=== PATIENT | female | born 2005 | race Two or more races ===

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

== ENCOUNTER 2024-03-19 12:23 | Outpatient (REF) | payer OTHER, SELFPAY ==
--- OUTSIDE RECORDS SUMMARY | 2024-03-19 13:28 | XMS_ITS | Encounter Summary ---
Author Organization [employer] Address [address] [place] [address] Care Team Providers Care Ticket Clerk Name Role Phone Unavailable Primary Care Provider Unavailabl e Encounter Details Date Type Department Care Team ([facility] st Contact Info) Description 03/19/2024 10:45 AM EST Office Visit [facility] [address] [place] [address] Monica Pandey DO [address] [place] [address] Routine history and physical examination of adult (Primary Dx); Encounter for immunization Social History Tobacco Use Types Packs/Day Years Used Date Smoking Tobacco: Never Smokeless Tobacco: Never Tobacco Cessation:Counseling Given: Not Answered Alcohol Use Standard Drinks/Week Comments Never 0 (1 standard drink = 0.6 oz pur e alcohol) Depression Answer Date Recorded Patient Health Questionnaire-9 Score 14 03/19/2024 Patient Health Questionnaire-9 Score 14 03/19/2024 Last PHQ-9: Questionnaire Data Not on file 0 03/19/2024 Housing Stability Answer Date Recorded What is your housing situation today? I have neelam hollis 03/07/[address] you li ve. Do you have problems with any of the following? None of the above 03/07/2024 Food Insecurity Answer Date Recorded Within the past 12 months, y ou worried that your food would run out before you got money to buy more: Sometimes True 2024 Within the past 12 months,th e food you bought just didn't last and you didn't have enough money to get more: Sometimes True 03/07/2024 Transportation Answer Date Recorded In the past 12 months, has l ack of transportation kept you from medical appts, meetings, work or from getting things needed for daily living? No 03/07/2024 Utilities Answer Date Recorded In the past 12 months, has t he electric, gas, oil or water company threatened to shut off services in your home? No 03/07/2024 Depression Answer Date Recorded Patient Health Questionnaire-2 Score 4 03/19/2024 Internet Access Answer Date Recorded Internet Access Q1 Yes 03/07/2024 Internet Access Q2 Not on file 03/07/2024 Comments No Sex and Gender Information Value Date Recorded Sex Assigned at Female 12/07/2021 10:34 AM EDT Legal Sex Female 10:34 AM EDT Gender Identity Female 05/02/2023 1:57 PM EDT Sexual Orientation Straight 05/02/2023 1: 57 PM EDT documented as of this encounter Last Filed Vital Signs Vital Sign Reading Time Taken Comments Blood Pressure 100/60 03/19/2024 10:49 AM EST Pulse 65 03/19/2024 10:49 AM EST Temperature 36.2 ??C (97.1 ??F) 03/19/2024 10:[address] Respiratory Rate 21 03/19/2024 10:49 AM EST Oxygen Saturation 99% 03/19/2024 10:49 AM EST Inhaled Oxygen Concentration - - Weight 45.8 kg (101 lb) 03/19/2024 10:49 AM EST Height 157.5 cm (5' 2 ) 03/19/2024 10:49 AM EST Body Mass Index 18.47 03/19/2024 10:49 AM EST documented in this encounter Plan of Treatment Scheduled Orders Name Type Priority Associated Diagnoses Orde r Schedule T4, Free Lab Routine Encounter for immunization Routine history and physical examination of adult Expected: 03/19/2024 (Approximate), Expires: 03/19/2025 Lipid Panel, Standard Lab Routine Encounter for immunization Routine history and physical examination of adult Expected: 03/19/2024 (Approximate), Expires: 03/19/2025 TSH Lab Routine Encounter for immunization Routine history and physical examination of adult Expected: 03/19/2024 (Approximate), Expires: 03/19/2025 Vitamin D, 25-Hydroxy, Total, Immunoassay Lab Routine Encounter for immunization Routine history and physical examination of adult Expected: 03/19/2024 (Approximate), Expires: 03/19/2025 Hepatic Function Panel Lab Routine Encounter for immunization Routine history and physical examination of adult Expected: 03/19/2024 (Approximate), Expires: 03/19/2025 Hemoglobin A1c Lab Routine Encounter for immunization Routine history and physical examination of adult Expected: 03/19/2024 (Approximate), Expires: 03/19/2025 CBC Lab Routine Encounter for immunization Routine history and physical examination of adult Expected: 03/19/2024, Expires: 03/19/2025 Basic Metabolic Panel Lab Routine Encounter for immunization Routine history and physical examination of adult Expected: 03/19/2024 (Approximate), Expires: 03/19/2025 Hepatitis B surface antigen, EIA Lab Routine Encounter for immunization Routine history and physical examination of adult Expected: 03/19/2024 (Approximate), Expires: 03/19/2025 Chlamydia/N. Gonorrhoeae RNA, TMA, Urogenitial Microbiology Routine Encounter for immunization Routine history and physical examination of adult Ordered: 03/19/2024 HIV-1/2 Antigen and Antibodies, Fourth Generation, with Reflexes Lab Routine Encounter for immunization Routine history and physical examination of adult Expected: 03/19/2024 (Approximate), Expires: 03/19/2025 Hepatitis C Antibody with Reflex to HCV, RNA, Quantitative, Real-Time PCR Lab Routine Encounter for immunization Routine history and physical examination of adult Expected: 03/19/2024, Expires: 03/19/2025 RPR (Monitor) with Reflex to??Titer Lab Routine Encounter for immunization Routine history and physical examination of adult Expected: 03/19/2024, Expires: 03/19/2025 Hepatitis B Surface Antibody, Qualitative Lab Routine Encounter for immunization Routine history and physical examination of adult Expected: 03/19/2024 (Approximate), Expires: 03/19/2025 Hepatitis A Antibody, Total Lab Routine Encounter for immunization Routine history and physical examination of adult Expected: 03/19/2024 (Approximate), Expires: 03/19/2025 Hepatitis B Core Antibody, Total Lab Routine Encounter for immunization Routine history and physical examination of adult Expected: 03/19/2024 (Approximate), Expires: 03/19/2025 documented as of this encounter Visit Diagnoses Diagnosis Routine history and physical examination of adult- Primary Encounter for immunization documented in this encounter Additional Health Concerns Assessment Noted Time PHQ-9 Depression Total Score: 14 025 10:56 AM EST documented as of this encounter
--- OUTSIDE RECORDS SUMMARY | 2024-03-19 13:28 | XMS_ITS | Encounter Summary ---
Author Organization [employer] Address [address] [place] [address] Care Team Providers Care Exhaust And Muffler Fitter Name Role Phone Unavailable Primary Care Provider Unavailabl e Reason for Visit * Reason Comments Pre-visit Planning SDOH Screening posit debbie and Tobacco screening negative Encounter Details Date Type Department Care Team ([facility] st Contact Info) Description 03/07/2024 Patient Outreach [facility] [address] [place] [address] Monica Pandey DO [address] [place] [address] Pre-visit Planning (SDOH Screening positive and Tobacco screening negative) Social History Tobacco Use Types Packs/Day Years Used Date Smoking Tobacco: Never Assessed Housing Stability Answer Date Recorded What is your housing situation today? I have neelamophelia hollis 03/07/[address] you [...] off services in your home? No 03/07/2024 Internet Access Answer Date Recorded Internet Access Q1 Yes 03/07/2024 Internet Access Q2 Not on file 03/07/2024 Comments Unknown Sex and Gender Information Value Date Recorded Sex Assigned at Female 12/07/2021 10:34 AM EDT Legal Sex Female 10:34 AM EDT Gender Identity Female 05/02/2023 1:57 PM EDT Sexual Orientation Straight 05/02/2023 1: 57 PM EDT documented as of this encounter Progress Notes * Yohana Huerta - 03/07/2024 2:36 PM EST CC Yohana Ochoa placed successful outbound call to patient for pre-visit planning. Patient name and confirmed. Patient confirms appt date and time, and has transportation arrangements. Biggest concern for appointment at this time is no concerns but wants PCP to do a whole check up. Patient advisedto bring to appointment a photo id and insurance card. Appropriate screenings completed in anticipation of appointment. SDOH positive. Patient looking for assistance with Food insecurities:Sometimes.Referral will be placed. documented in this encounter Plan of Treatment Not on file documented as of this encounter Visit Diagnoses Not on filedocumented in this encounter
--- OUTSIDE RECORDS SUMMARY | 2024-03-19 13:28 | XMS_ITS | Clinical Summary ---
Author Organization [employer] Address [address] [facility] [address] [place] [address] Care Team Providers Care Office Clin Asst Name Role Phone Unavailable Primary Care Provider Unavailabl e Allergies No known active allergies Encounters Date Type Department Care Team Description 03/19/2024 10:45 AM EST Office Visit [address] [id number] Monica Pandey DO Routine history and physical examination of adult (Primary Dx); Encounter for immunization 03/19/2024 Travel 03/07/2024 Patient Outreach [facility] [address] [place] [id number] Monica Pandey DO Care Coordination (CHW outreach for SDOH PT-1 and food needs-referral completed /) 03/07/2024 Patient Outreach [address] [address] Monica Pandey DO Pre-visit Planning (SDOH Screening positive and Tobacco screening negative) 02/13/[address] [phone] Marquez Rogers MD New patient appt. from Last 3 Months Immunizations Name Administration Dates Next Due Influenza, seasonal, injectable, preservative fr ee 03/19/2024 Tdap 03/19/2024 Family History Medical History Relation Name Comments Bipolar disorder Father Schizophrenia Father Breast cancer Maternal Grandmother Alcohol abuse Mother Anxiety disorder Mother Depression Mother Heart disease Mother Hypertension Mother Autism Nephew Bipolar disorder Sister 1 Schizophrenia Sister 1 Depression Sister 2 Diabetes Sister 2 Relation Name Status Comments Father Maternal Grandmother Mother Nephew Alive Sister 1 Sister 2 Alive Social History Tobacco Use Types Packs/Day Years [...] Orientation Straight 05/02/2023 1: 57 PM EDT Last Filed Vital Signs Vital Sign Reading [...] Mass Index 18.47 03/19/2024 10:49 AM EST Plan of Treatment Health Maintenance Due Date Last Done Comments Chlamydia and Gonorrhea Screening 2003 HIV Screening 2003 Family Planning (PISQ) 08/13/2018 HPV Vaccines (1 - 3-dose series) 08/13/2018 Hepatitis C Screening 08/13/2021 Hepatitis B Vaccines (1 of 3 - 19+ 3-dose series) 08/13/2022 COVID-19 Vaccine ( - 2023-2 5 season) 2023 Depression Monitoring (PHQ-9) 09/16/2024, 03/19/2024 SDOH Screening 03/07/2025 03/07/2024 Alcohol/Substance Use Screening 03/19/2025 03/19/2024 Depression Screening 03/19/2025 03/19/2024, 03/19/2024 Tobacco Screening 03/19/2025 03/19/2024 DTaP/Tdap/Td Vaccines (2 - T d or Tdap) 03/19/2034 03/19/2024 Zoster Vaccines (1 of 2) 08/13/2053 RSV Patients and Patients Aged 60 years or older (1 - 1-dose 75+ series) 08/13/2078 Influenza Vaccine Completed 03/19/2024 HIB Vaccines Aged Out No longer eligi ble based on patient's age to complete this topic Hepatitis A Vaccines Aged Out No long er eligible based on patient's age to complete this topic IPV Vaccines Aged Out No longer eligi ble based on patient's age to complete this topic Meningococcal Vaccine Aged Out No stefan ruma eligible based on patient's age to complete this topic Pneumococcal Vaccine: Pediatrics (0 to 5 Years) and At-Risk Patients (6 to 49) Years) Aged Out No longer eligible b ased on patient's age to complete this topic RSV under 20 months Aged Out No longe r eligible based on patient's age to complete this topic Rotavirus Vaccines Aged Out No longer eligible based on patient's age to complete this topic Insurance [facility] [address] [place] [address]
--- OUTSIDE RECORDS SUMMARY | 2024-03-19 13:28 | XMS_ITS | Encounter Summary ---
Author Organization [employer] Address [address] [facility] [address] [place] [address] Care Team Providers Care Metal Inspector Name Role Phone Unavailable Primary Care Provider Unavailabl e Encounter Details Date Type Department Care Team (Latest Contact Info) Description 03/19/2024 Travel Social History Tobacco Use Types Packs/Day Years Used Date Smoking Tobacco: Never Smokeless Tobacco: Never Alcohol Use Standard Drinks/Week Comments Never 0 [...] PM EDT documented as of this encounter Plan of Treatment Not on file documented as of this encounter Visit Diagnoses Not on filedocumented in this encounter Additional Health Concerns Assessment Noted Time PHQ-9 Depression Total Score: 14 025 10:56 AM EST documented as of this encounter
--- OUTSIDE RECORDS SUMMARY | 2024-03-19 13:28 | XMS_ITS | Encounter Summary ---
Author Organization [employer] Address [address] [address] [place] [address] Care Team Providers Care Photography Intern Name Role Phone Unavailable Primary Care Provider Unavailabl e Reason for Visit * Reason Comments Care Coordination CHW outreach for SDO H PT-1 and food needs-referral completed Encounter Details Date Type Department Care Team (Latest Contact Info) Description 03/07/2024 Patient Outreach [facility] [address] [place] [address] Monica Pandey DO [address] [place] [address] Care Coordination (CHW outreach for SDOH PT-1 and food needs-referral completed /) Social History Tobacco Use Types Packs/Day Years [...] as of this encounter Progress Notes * Alex Noriega - 03/07/2024 3:21 PM EST CHW Alex Noriega, placed outbound call to patient for assistance with SDOH as a referral was received by the provider. Patient's name and were confirmed. Patient screened positive for the following SDOH pet's control & food insecurities. CHW referral patient to the local list of pantriesin the area for help and advice family to connect with [employer] and pet's control offices [place]. Patient verbalizes understanding, and able to agree with plan to follow up. Patient educated on extended clinic hours on Mondays through Wednesdays, and Walk-In Urgent Care Located in [facility] of [facility]. Patient provided with after-hours line for [facility], , which offer night time triage service and option to transfer to [facility]oh[facility] surgeon provider if needed. documented in this encounter Plan of Treatment Not on file documented as of this encounter Visit Diagnoses Not on filedocumented in this encounter
[2024-03-19 13:29] LABS: Hematocrit 43.6 % (37.0-47.0); Hemoglobin 14.4 g/dl (12.0-16.0); Mean Corpuscular Hemoglobin 29.2 pg (27.0-33.0); Mean Corpuscular Volume 88.4 fL (80.0-98.0); Mean Platelet Volume 10.4 fL (9.4-12.3); Platelet Count 314 X10*3/uL (160-400); Red Blood Count 4.93 X10*6/uL (4.20-5.50); Red Cell Distribution Width 11.9 % (11.0-16.0); White Blood Count 8.2 X10*3/uL (4.8-10.8)
[2024-03-19 13:39] LABS: Estimated Average Glucose 94 mg/dL; Hemoglobin A1C 112.6949 umol/L; Hemoglobin A1c % 4.9 % (<6.0)
[2024-03-19 14:00] LABS: Alanine Aminotransferase 17 U/L (0-31); Albumin Level 5.1 g/dL (3.5-5.0); Alkaline Phosphatase 70 U/L (39-117); Anion Gap 10 (12-20); Aspartate Amino Transferase 24 U/L (5-31); Bilirubin Direct 0.1 mg/dL (0.0-0.5); Bilirubin Total 0.3 mg/dL (0.0-1.0); Blood Urea Nitrogen 13 mg/dL (9-16); Calcium 9.9 mg/dL (8.4-10.2); Carbon Dioxide 26 mmol/L (22-29); Chloride 107 mmol/L (96-108); Cholesterol 172 mg/dL (<200); Estimated Glomerular Filt Rate > 60; Free T4 (Free Thyroxine) 0.97 ng/dL (0.71-1.85); Glucose Random 80 mg/dL (60-115); HDL Cholesterol 58 mg/dL (>40); LDL Cholesterol Calculated 95 mg/dL (<100); Potassium 3.6 mmol/L (3.3-5.1); Sodium 139 mmol/L (135-145); Thyroid Stimulating Hormone 1.95 uIU/mL (0.32-4.0); Triglycerides 96 mg/dL (<150); Vitamin D 25-OH Total 27.3 ng/mL (>30)
[2024-03-19 14:04] LABS: HBc Num1 0.09 S/CO (0.00-0.79); HIV AB/AG Nonreactive (Nonreactive); HIV Num 1 0.05 S/CO (0.00-0.99); Hepatitis B Core Antibody Nonreactive (Nonreactive); Hepatitis B Surface Antigen Negative (Negative); ~HepC Num1 0.09 S/CO (0.00-0.79); ~Hepatitis B Surface Antibody NONREACTIVE (Nonreactive); ~Hepatitis C Antibody Nonreactive (Nonreactive)
[2024-03-19 14:06] LABS: Hepatitis A Antibody IgG REACTIVE (Nonreactive)
[2024-03-20 05:33] LABS: CT PCR NOT DETECTED (Not Detect.); NG PCR NOT DETECTED (Not Detect.)
[2024-03-21 12:28] LABS: RPR Rapid Plasma Reagin NON-REACTIVE (NON-REACTIVE)
== END 2024-03-19 12:24 | disposition home or self-care (01) ==
LOC: HO.HHCL 12:23
PROVIDERS: Visit Provider Family Medicine
DX: Z00.00 Encounter for general adult medical examination without abnormal findings (principal); Z01.84 Encounter for antibody response examination
CPT/HCPCS: 80048; 80061; 80076; 82306; 83036; 84439; 84443; 85027; 86592; 86704; 86706; 86708; 86803; 87340; 87389; 87491; 87591

== ENCOUNTER 2024-03-23 14:25 | Emergency (ER) | payer OTHER, SELFPAY ==
[2024-03-23 14:28] VITALS: BP 112/86; PULSE 91; O2SAT 97
[2024-03-23 15:06] VITALS: BP 121/72; PULSE 92; RESP 16; TEMP 37.9; O2SAT 99; BMI 19.1
--- NOTE | 2024-03-23 15:06 | ED_ITS ---
HPI - General Adult General Chief complaint: General Medical Stated complaint: FLU LIKE SYMPTOMS, FEVER PER EMS Related Data Allergies Allergy/AdvReac Type Severity Reaction Status Date / Time No Known Allergies Allergy Verified 03/23/24 15:07 [facility] Past Medical History Medical History Anxiety and depression Eating, excessive indulgence Engages in vaping Marijuana smoker, episodic Stress due to illness of family member Vision disturbance Family History Family History Mother Heart attack History of open heart surgery Ex-cigarette smoker of unknown amount Limited mobility Family/Other No problems noted. Social History Social History Household Members Other:: mom, step dad, pt's girlfriend; mom homebound post cardiac surgery 01/28 Housing: Apartment Advance Directives: No Advance Directives Information Provided: No Physical Exam ED Vital Signs: BMI result Body Mass Index 19.1 Course Course Course Narrative: RME, this is a rapid medical exam performed by Mal Muñiz please refer to primary provider for complete H&P- 18 year old female presents for evaluation of flu-like symptoms for the last 2 days. She reports that she got her flu shot last week. Her mother is home with similar symptoms. Discharge Plan Discharge Clinical Impression: Fever Patient Disposition: Left W/O Completing Treatment Discharge Date/Time: 03/23/24 19:48
--- NOTE | 2024-03-23 19:47 | PC.NURSE ---
no answer from [id number]
--- OUTSIDE RECORDS SUMMARY | 2024-03-23 19:48 | XMS_ITS | Encounter Summary ---
Author Organization [employer] Address [address] [place] [address] Care Team Providers Care Certified Nutritionist Name Role Phone Unavailable Primary Care Provider Unavailabl e Encounter Details Date Type Department Care Team ([facility] st Contact Info) Description 03/19/2024 10:45 AM EST Office Visit [facility] [address] [place] [address] Monica Pandey DO [address] [place] [address] Routine history and physical examination of adult [...] on file documented as of this encounter Procedures Procedure Name Priority Date/Time Associated Diagnosis Comments VITAMIN D,25-OH,TOTAL,IA Routine 03/19/2024 12:26 PM EST Encounter for immunization Routine history and physical examination of adult HEPATITIS C AB W/REFL TO HCV RNA, QN, PCR Routine 03/19/2024 12:26 PM EST Encounter for immunization Routine history and physical examination of adult HEPATITIS A ANTIBODY, TOTAL Routine 03/19/2024 12:26 PM EST Encounter for immunization Routine history and physical examination of adult CHLAMYDIA/N. GONORRHOEAE RNA, TMA, UROGENITAL Routine 03/19/2024 12:26 PM EST Encounter for immunization Routine history and physical examination of adult HEPATITIS B SURFACE ANTIGEN, EIA Routine 03/19/2024 12:26 PM EST Encounter for immunization Routine history and physical examination of adult HEPATITIS B CORE AB TOTAL Routine 03/19/2024 12:26 PM EST Encounter for immunization Routine history and physical examination of adult RPR (MONITOR) W/REFL TITER Routine 03/19/2024 12:26 PM EST Encounter for immunization Routine history and physical examination of adult HIV 1/2 ANTIGEN/ANTIBODY, FOURTH GENERATION W/RFL Routine 03/19/2024 12:26 PM EST Encounter for immunization Routine history and physical examination of adult HEPATITIS B SURFACE ANTIBODY, QUALITATIVE Routine 03/19/2024 12:26 PM EST Encounter for immunization Routine history and physical examination of adult CBC Routine 03/19/2024 12:26 PM EST Encounter for immunization Routine history and physical examination of adult TSH Routine 03/19/2024 12:26 PM EST Encounter for immunization Routine history and physical examination of adult T4, FREE Routine 03/19/2024 12:26 PM EST Encounter for immunization Routine history and physical examination of adult HEMOGLOBIN A1C Routine 03/19/2024 12:26 PM EST Encounter for immunization Routine history and physical examination of adult HEPATIC FUNCTION PANEL Routine 03/19/2024 12:26 PM EST Encounter for immunization Routine history and physical examination of adult LIPID PANEL, STANDARD Routine 03/19/2024 12:26 PM EST Encounter for immunization Routine history and physical examination of adult BASIC METABOLIC PANEL Routine 03/19/2024 12:26 PM EST Encounter for immunization Routine history and physical examination of adult documented in this encounter Results * Hepatitis B Core Antibody, Total (03/19/2024 12:26 PM EST) Hepatitis B Core Antibody Nonreactive Nonreactive [facility] Blood Venous blood specimen / Unknown 03/19/2024 12:26 PM EST 03/19/2024 1:14 PM EST Monica Pandey DO LAB BLOOD ORDERABLES Final R esult Performing Organization Address City/Va Hospital/ZIP Co de Phone Number [facility] [address] [place] [address] [phone] * Hepatitis A Antibody, Total (03/19/2024 12:26 PM EST) Pathologist [facility] Hepatitis A Antibody IgG REACTIVE Nonreactive [facility] Comment:The presence of IgG anti-HAV implies past HAV infection(recent or distant) or vaccination against HAV. Blood Venous blood specimen / Unknown 03/19/2024 12:26 PM EST 03/19/2024 1:14 PM EST Monica Pandey DO LAB BLOOD ORDERABLES Final R esult Performing Organization Address City/Va Hospital/[facility] Co de Phone Number [facility] [address] [place] [address] [phone] * Hepatitis B Surface Antibody, Qualitative (03/19/2024 12:26 PM EST) ~Hepatitis B Surface Antibody NONREACTIVE Nonreactive [facility] Comment:Nonreactive: < 8.00 mIU/mL Blood Venous blood specimen / Unknown 03/19/2024 12:26 PM EST 03/19/2024 1:14 PM EST Monica Pandey DO LAB BLOOD ORDERABLES Final R esult Performing Organization Address City/Va Hospital/ZIP Co de Phone Number [facility] [address] [place] [address] [phone] * RPR (Monitor) with Reflex to??Titer (03/19/2024 12:26 PM EST) RPR (Monitor) w/Refl Titer NON-REACTI VE NON-REACT RODRIGUE [facility] Comment:THIS TEST WAS PERFOR MED AT:[email or web address] [place] [id number] TAPIA MD Rapid Plasma Reagin Ab Titer TNP [facility] Blood Venous blood specimen / Unknown 03/19/2024 12:26 PM EST 03/19/2024 1:14 PM EST Monica Pandey DO LAB BLOOD ORDERABLES Final R esult Performing Organization Address [facility]/Va Hospital/ZIP Co de Phone Number [facility] [address] [place] [phone] * Hepatitis C Antibody with Reflex to HCV, RNA, Quantitative, Real-Time PCR (03/19/2024 12:26 PM EST) Hepatitis C Antibody Nonreactive Nonreactive [facility] Comment:Antibodies to HCV no t detected; does not exclude early acuteHCV infection. Blood Venous blood specimen / Unknown 03/19/2024 12:26 PM EST 03/19/2024 1:14 PM EST Monica Pandey DO LAB BLOOD ORDERABLES Final R esult Performing Organization Address [facility]/Va Hospital/ZIP Co de Phone Number [facility] [address] [place] [phone] [phone] * HIV-1/2 Antigen and Antibodies, Fourth Generation, with Reflexes (03/19/2024 12:26 PM EST) HIV AB/AG Nonreactive Nonreactive [facility] Comment:HIV-1 p24 Ag and/or HIV-1/HIV-2 Ab not detected.A test result that is nonreactive does not exclude thepossibility of exposure to or infection with HIV-1 and/orHIV-2. Nonreactive results in this assay for individualswith prior exposure to HIV-1 and/or HIV-2 may be due toantigen and antibody levels that are below the limit ofdetection of this assay.The [employer] HIV Ag/Ab Combo assay result andsupplemental assay results should be interpreted inconjunction with the patient's clinical presentation,history and other laboratory results. If the results areinconsistent with clinical evidence, additional testing issuggested to confirm the result. Blood Venous blood specimen / Unknown 03/19/2024 12:26 PM EST 03/19/2024 1:14 PM EST us Monica Pandey DO LAB BLOOD ORDERABLES Final R esult [facility] [address] [place] [phone] * Chlamydia/N. Gonorrhoeae RNA, TMA, Urogenitial (03/19/2024 12:26 PM EST) CT PCR NOT DETECTED Not Detect. [facility] Comment:A not detected test result does not exclude the possibilityof infection because test results can be affected byimproper specimen collection, concurrent antibiotic therapy,or the number of organisms in the specimen which may bebelow the sensitivity of the test. As with many diagnostictests, results from the Xpert CT/NG assay should beinterpreted in conjunction with other laboratory andclinical data available to the clinician.Xpert CT/NG performance has not been evaluated in patientsless than 14 years of age. The assay should not be used forthe evaluationof suspected sexual abuse or for other medico-legalindications. Additional testing is recommended in anycircumstance when false positive or false negative resultscould lead to adverse medical, social or psychologicalconsequences. NG PCR NOT DETECTED Not Detect. [facility] Comment:A not detected test result does not exclude the possibilityof infection because test results can be affected byimproper specimen collection, concurrent antibiotic therapy,or the number of organisms in the specimen which may bebelow the sensitivity of the test. As with many diagnostictests, results from the Xpert CT/NG assay should beinterpreted in conjunction with other laboratory andclinical data available to the clinician.Xpert CT/NG performance has not been evaluated in patientsless than 14 years of age. The assay should not be used forthe evaluationof suspected sexual abuse or for other medico-legalindications. Additional testing is recommended in anycircumstance when false positive or false negative resultscould lead to adverse medical, social or psychologicalconsequences. Urine Urethral structure / Unknown 03/19/2024 12:26 PM EST 03/19/2024 1:11 PM EST Narrative [facility] - 03/20/2024 5:33 AM EST Urine Monica Pandey DO LAB MICROBIOLOGY - GENERAL O RDERABLES Final Result Performing Organization Address [facility]/Va Hospital/ZIP Co de Phone Number [facility] [address] [place] [address] [phone] * Hepatitis B surface antigen, EIA (03/19/2024 12:26 PM EST) Hepatitis B Surface Ag Negative Negative [facility] Blood Venous blood specimen / Unknown 03/19/2024 12:26 PM EST 03/19/2024 1:14 PM EST Monica Pandey DO LAB BLOOD ORDERABLES Final R esult Performing Organization Address [facility]/Va Hospital/ZIP Co de Phone Number [facility] [address] [place] [address] [phone] * (ABNORMAL) Basic Metabolic Panel (03/19/2024 12:26 PM EST) Sodium 139 135 - 145 mmol/L [facility] Potassium 3.6 3.3 - 5.1 mmol/L [facility] Chloride 107 96 - 108 mmol/L [facility] Carbon Dioxide 26 22 - 29 mmol/L [facility] Anion Gap 10(L) 12 - 20 [facility] Urea Nitrogen (BUN) 13 9 - 16 mg/dL [facility] Creatinine, Serum 0.70 0.5 - 1.4 mg/dL [facility] Estimated Glomerular Filt Rate >60 [facility] Comment:Chronic Kidney Disea se: Estimated GFR < 60 mL/min/[id number] Kidney Disease: Estimated GFR < 15 mL/min/1.73m2 Glucose 80 60 - 115 mg/dL [facility] Calcium 9.9 8.4 - 10.2 mg/dL [facility] Blood Venous blood specimen / Unknown 03/19/2024 12:26 PM EST 03/19/2024 1:14 PM EST us Monica Pandey DO LAB BLOOD ORDERABLES Final R esult [facility] [address] [place] [address] [phone] * CBC (03/19/2024 12:26 PM EST) White Blood Count 8.2 4.8 - 10.8 X10*3/uL [facility] Red Blood Count 4.93 4.20 - 5.50 X10*6/uL [facility] Hemoglobin 14.4 12.0 - 16.0 g/dl [facility] Hematocrit 43.6 37.0 - 47.0 % [facility] Mean Corpuscular Volume 88.4 80.0 - 98.0 fL [facility] Mean Corpuscular Hemoglobin 29.2 27.0 - 33.0 pg [facility] Mean Corpuscular HGB Conc 33.0 31.0 - 35.0 g/dl [facility] Red Cell Distribution Width 11.9 11.0 - 16.0 % [facility] Platelet Count 314 160 - 400 X10*3/uL [facility] Mean Platelet Volume 10.4 9.4 - 12.3 fL [facility] NRBC Pct Auto 0.0 0.0 - 0.2 /100WBC [facility] NRBC Abs Auto 0.000 0.0 - 0.012 X10*3/uL [facility] Blood Venous blood specimen / Unknown 03/19/2024 12:26 PM EST 03/19/2024 1:14 PM EST Monica Dannie LAB BLOOD ORDERABLES Final R esult Performing Organization Address City/Va Hospital/ZIP Co de Phone Number [facility] [address] [place] [address] [phone] * Hemoglobin A1c (03/19/2024 12:26 PM EST) Hemoglobin A1c 4.9 <6.0 % [facility] Comment:Hemoglobin A1C Refer ence Range Adults: 4.8 - 6.0 % Non diabetic: < 6.0 % Goal: < 7.0 %Additional Action Suggested: > 8.0 %Note: Hemoglobin A1c results are invalid for patients with abnormal amounts of HbF. Blood transfusions may impact the HbA1c concentration in the patient sample. Estimated Average Glucose 94 mg/dL [facility] Comment:eAG = Estimated ave rage glucose which is %A1C expressed asaverage glucose, using the formula of the [id number]-[id number] Glucose study (ADAG), Diabetes Care, Vol.31,#8,Sep. 2007 Blood Venous blood specimen / Unknown 03/19/2024 12:26 PM EST 03/19/2024 1:14 PM EST Monica Pandey DO LAB BLOOD ORDERABLES Final R esult Performing Organization Address City/Va Hospital/ZIP Co de Phone Number [facility] [address] [place] [address] [phone] * (ABNORMAL) Hepatic Function Panel (03/19/2024 12:26 PM EST) Bilirubin, Total 0.3 0.0 - 1.0 mg/dL [facility] Bilirubin, Direct 0.1 0.0 - 0.5 mg/dL [facility] Aspartate Amino Transferase 24 5 - 31 U/L [facility] Alanine Aminotransferase 17 0 - 31 U/L [facility] Total Protein 9.0(H) 6.5 - 8.0 g/dL [facility] Albumin Level 5.1(H) 3.5 - 5.0 g/dL [facility] Alkaline Phosphatase 70 39 - 117 U/L [facility] Blood Venous blood specimen / Unknown 03/19/2024 12:26 PM EST 03/19/2024 1:14 PM EST [facility] BLOOD ORDERABLES Final R esult Performing Organization Address [facility] Hospital/[facility] Co de Phone Number [facility] [address] [place] [address] [phone] * (ABNORMAL) Vitamin D, 25-Hydroxy, Total, Immunoassay (03/19/2024 12:26 PM EST) Vitamin D 25-OH Total 27.3(L) >30 ng/mL [facility] Comment:Health Based Referen ce Values*< 20 ng/mL [id number] ng/mL Insufficient> 30 ng/mL Sufficient*Tan MARIE. N Engl J Med. 2007;357:266-280Care must be taken in interpreting Vitamin D results fromdifferent laboratories and methodologies. Published datademonstrated that results from patients undergoinghemodialysis may show a negative bias when tested withvarious automated 25-OH vitamin D assays when compared toLC-MS/MS.When testing samples from patients whose predominant form ofVitamin D is Vitamin D2, such as patients receiving VitaminD2 supplementation, results that are subtherapeutic shouldbe confirmed with another method such as LC-MS/MS. Blood Venous blood specimen / Unknown 03/19/2024 12:26 PM EST 03/19/2024 1:14 PM EST [facility] LAB BLOOD ORDERABLES Final R esult Performing Organization Address City/[facility] Hospital/[facility] Co de Phone Number [facility] [address] [place] [address] [phone] * TSH (03/19/2024 12:26 PM EST) Thyroid Stimulating Hormone 1.95 0.32 - 4.0 uIU/mL [facility] Comment:TSH 3rd Generation ( [facility]) Blood Venous blood specimen / Unknown 03/19/2024 12:26 PM EST 03/19/2024 1:14 PM EST us Monica Pandey DO LAB BLOOD ORDERABLES Final R esult [facility] [address] [place] [address] [phone] * Lipid Panel, Standard (03/19/2024 12:26 PM EST) Triglycerides 96 <150 mg/dL [facility] Comment:Desirable Triglyceri de: less than 150 mg/dLBorderline High Triglyceride 150-199 mg/dLHigh Triglyceride: 200-499 mg/dLVery High Triglyceride: greater than or equal to 5OO mg/dL Cholesterol 172 <200 mg/dL [facility] Comment:Desirable Cholestero l: less than 200 mg/dLBorderline High Cholesterol: 200-239 mg/dLHigh Cholesterol: greater than 239 mg/dL LDL Cholesterol Calculated 95 <100 mg/dL [facility] Comment:Desirable LDL: less than 100 mg/dLNear Optimal/Above Optimal LDL: 110- 129 mg/dLBorderline High LDL: 130-159 mg/dLHigh LDL: 160-189 mg/dLVery High LDL: greater than or equal to 190 mg/dL HDL Cholesterol 58 >40 mg/dL [facility] Comment:Desirable HDL: great er than 40 mg/dL Note: This HDL assay may give artificially low results in patients with liver disease. Blood Venous blood specimen / Unknown 03/19/2024 12:26 PM EST 03/19/2024 1:14 PM EST us Monica Pandey DO LAB BLOOD ORDERABLES Final R esult Performing Organization Address City/Va Hospital/ZIP Co de Phone Number [facility] [address] [place] [phone] [phone] * T4, Free (03/19/2024 12:26 PM EST) Free T4 (Free Thyroxine) 0.97 0.71 - 1.85 ng/dL [facility] Blood Venous blood specimen / Unknown 03/19/2024 12:26 PM EST 03/19/2024 1:14 PM EST us Monica Pandey DO LAB BLOOD ORDERABLES Final R [facility] Performing Organization Address [facility] Co de Phone Number [facility] [address] [place] [address] [phone] documented in this encounter Visit Diagnoses Diagnosis Routine history and physical examination of adult- Primary Encounter for immunization documented in this encounter Additional Health Concerns Assessment Noted Time PHQ-9 Depression Total Score: 14 025 10:56 AM EST documented as of this encounter
--- OUTSIDE RECORDS SUMMARY | 2024-03-23 19:48 | XMS_ITS | Encounter Summary ---
Author Organization [employer] Address [address] [place] [address] Care Team Providers Care Straight Knife Machine Cutter Name Role Phone Unavailable Primary Care Provider Unavailabl e Reason for Visit * Reason Onset Date Comments Results 03/22/2024 Encounter Details Date Type Department Care Team (Late st Contact Info) Description 03/22/2024 Refill [facility] [address] [place] [address] Monica Pandey DO [address] [place] [address] Social History Tobacco Use Types Packs/Day Years [...] PM EDT documented as of this encounter Miscellaneous Notes * Telephone Encounter - Rosa Head RN - 03/22/2024 3:41 PM EST RN reviewed BW results with PCP. BW results were all stable/WNL except vitamin D which was slightlylow. Patient will need daily supplementation. TC placed to patient [phone] to inform of above information. Patient verbalized understanding.Patient to f/u PRN. documented in this encounter Plan of Treatment Not on file documented as of this encounter Visit Diagnoses Not on filedocumented in this encounter Additional Health Concerns Assessment Noted Time PHQ-9 Depression Total Score: 14 025 10:56 AM EST documented as of this encounter
--- OUTSIDE RECORDS SUMMARY | 2024-03-23 19:48 | XMS_ITS | Clinical Summary ---
Author Organization [employer] [facility] Address [address] [facility] 7t [place] [address] Care Team Providers Care Routing Equipment Tender Name Role Phone Unavailable Primary Care Provider Unavailabl e Allergies No known active allergies Medications * This document contains information received from the source organization and may not represent a complete record from that organization. cholecalciferol (Vitamin D-3) 50 MCG (2000 UT) capsule Take 1 capsule (50 mcg) by mouth Once per day. 90 capsule 3 03/22/2024 Active Active Problems Problem Noted Date Diagnosed Date History of non-suicidal self-harm 03/21/2024 Moderate episode of recurrent major depressive d isorder 03/20/2024 DAISY (generalized anxiety disorder) 03/20/2024 Encounters * This document contains information received from the source organization and may not represent a complete record from that organization. Date Type Department Care Team Description 03/22/2024 Refill [facility] [address] [place] [phone] Monica Pandey DO 03/19/2024 10:45 AM EST Office Visit [facility] [address] [place] [address] [phone] Monica Pandey DO Routine history and physical examination of adult (Primary Dx); Encounter for immunization 03/19/2024 Travel 03/07/2024 Patient Outreach [facility] [address] [place] [phone] Monica Pandey DO Care Coordination (CHW outreach for SDOH PT-1 and food needs-referral completed /) 03/07/2024 Patient Outreach [facility] [address] [place] [phone] Monica Pandey DO Pre-visit Planning (SDOH Screening positive and Tobacco screening negative) 02/13/2024 Telephone [facility] [address] [place] [address] Marquez Rogers MD New patient appt. from [...] Health Maintenance Due Date Last Done Comments Family Planning (PISQ) 08/13/2018 HPV Vaccines (1 - 3-dose series) 08/13/2018 Hepatitis B Vaccines (1 of 3 - 19+ 3-dose series) 08/13/2022 COVID-19 Vaccine ( - 2023-2 5 season) 2023 Depression Monitoring (PHQ-9) 09/16/2024, 03/19/2024 SDOH Screening 03/07/2025 03/07/2024 Alcohol/Substance Use Screening 03/19/2025 03/19/2024 Chlamydia and Gonorrhea Screening 03/19/2025 03/19/2024 Depression Screening 03/19/2025 03/19/2024, 03/19/2024 Tobacco Screening 03/19/2025 03/19/2024 DTaP/Tdap/Td Vaccines (2 - T d or Tdap) 03/19/2034 03/19/2024 Zoster Vaccines (1 of 2) 08/13/2053 RSV Patients and Patients Aged 60 years or older (1 - 1-dose 75+ series) 08/13/2078 HIV Screening Completed 03/19/2024 Hepatitis C Screening Completed 03/19/2024 Influenza Vaccine Completed 03/19/2024 HIB Vaccines Aged [...] on patient's age to complete this topic Procedures Procedure Name Priority Date/Time Associated Diagnosis Comments HEPATITIS B CORE AB TOTAL Routine 03/19/2024 [...] Routine history and physical examination of adult VITAMIN D,25-OH,TOTAL,IA Routine 03/19/2024 12:26 PM EST [...] Routine history and physical examination of adult from Last 3 Months Results * (ABNORMAL) Vitamin D, 25-Hydroxy, Total, Immunoassay (03/19/2024 12:26 PM EST) Vitamin D 25-OH Total 27.3(L) >30 ng/mL [facility] Comment:Health Based Referen ce Values*< 20 ng/mL [id number] ng/mL Insufficient> 30 ng/mL Sufficient*Tan MARIE. N [...] ORDERABLES Final R esult Performing Organization Address [facility] Co de Phone Number [facility] [address] [place] [phone] * Hepatitis C Antibody with Reflex to HCV, RNA, Quantitative, Real-Time PCR (03/19/2024 12:26 PM EST) Hepatitis C Antibody Nonreactive Nonreactive [facility] Comment:Antibodies to HCV no t detected; does not exclude early acuteHCV infection. Blood Venous blood specimen / Unknown 03/19/2024 12:26 PM EST 03/19/2024 1:14 PM EST Result [facility] Monica Pandey LAB BLOOD ORDERABLES Final R esult Performing Organization Address [facility] Co de Phone Number [facility] [address] [place] [address] [phone] * Hepatitis A Antibody, Total (03/19/2024 12:26 PM EST) Hepatitis A Antibody IgG REACTIVE Nonreactive [facility] Comment:The presence of IgG anti-HAV implies past HAV infection(recent or distant) or vaccination against HAV. Blood Venous blood specimen / Unknown 03/19/2024 12:26 PM EST 03/19/2024 1:14 PM EST Monica Pandey DO LAB BLOOD ORDERABLES Final R esult Performing Organization Address [facility] Co de Phone Number [facility] [address] [place] [phone] [phone] * Chlamydia/N. Gonorrhoeae RNA, TMA, Urogenitial (03/19/2024 12:26 PM EST) CT PCR NOT DETECTED Not Detect. [facility] Comment:A not detected test result [...] psychologicalconsequences. NG PCR NOT DETECTED Not Detect. [facility] Comment:A not detected test result [...] PM EST 03/19/2024 1:11 PM EST Narrative [facility] - 03/20/2024 5:33 AM EST Urine us Monica Pandey DO LAB MICROBIOLOGY - GENERAL O RDERABLES Final Result [facility] [address] [place] [address] [phone] * Hepatitis B surface antigen, EIA (03/19/2024 12:26 PM EST) Hepatitis B Surface Ag Negative Negative [facility] Blood Venous blood specimen / Unknown 03/19/2024 12:26 PM EST 03/19/2024 1:14 PM EST Monica Pandey DO LAB BLOOD ORDERABLES Final R esult Performing Organization Address [facility] Co de Phone Number [facility] [address] [place] [address] [phone] * Hepatitis B Core Antibody, Total (03/19/2024 12:26 PM EST) Hepatitis B Core Antibody Nonreactive Nonreactive [facility] Blood Venous blood specimen / Unknown 03/19/2024 12:26 PM EST 03/19/2024 1:14 PM EST Monica Pandey DO LAB BLOOD ORDERABLES Final R esult Performing Organization Address [facility] Co de Phone Number [facility] [address] [place] [address] [phone] * RPR (Monitor) with Reflex to??Titer (03/19/2024 12:26 PM EST) RPR (Monitor) w/Refl Titer NON-REACTI VE NON-REACT RODRIGUE [facility] Comment:THIS TEST WAS PERFOR MED AT:[facility] [address] [phone] TAPIA MD Rapid Plasma Reagin Ab Titer TNP [facility] Blood Venous blood specimen / Unknown 03/19/2024 12:26 PM EST 03/19/2024 1:14 PM EST Monica Pandey DO LAB BLOOD ORDERABLES Final R esult Performing Organization Address City/[facility]/ZIP Co de Phone Number [facility] [address] [place] [address] [phone] * HIV-1/2 Antigen and Antibodies, Fourth Generation, with Reflexes (03/19/2024 12:26 PM EST) HIV AB/AG Nonreactive Nonreactive [facility] Comment:HIV-1 p24 Ag and/or HIV-1/HIV-2 Ab not detected.A test result that is nonreactive does not exclude thepossibility of exposure to or infection with HIV-1 and/orHIV-2. Nonreactive results in this assay for individualswith prior exposure to HIV-1 and/or HIV-2 may be due toantigen and antibody levels that are below the limit ofdetection of this assay.The [employer] HIV Ag/Ab Combo assay result andsupplemental assay results should be interpreted inconjunction with the patient's clinical presentation,history and other laboratory results. If the results areinconsistent with clinical evidence, additional testing issuggested to confirm the result. Blood Venous blood specimen / Unknown 03/19/2024 12:26 PM EST 03/19/2024 1:14 PM EST Monica Pandey DO LAB BLOOD ORDERABLES Final R esult Performing Organization Address City/[facility]/ZIP Co de Phone Number [facility] [address] [place] [phone] * Hepatitis B Surface Antibody, Qualitative (03/19/2024 12:26 PM EST) ~Hepatitis B Surface Antibody NONREACTIVE Nonreactive [facility] Comment:Nonreactive: < 8.00 mIU/mL Blood Venous blood specimen / Unknown 03/19/2024 12:26 PM EST 03/19/2024 1:14 PM EST Monica Pandey DO LAB BLOOD ORDERABLES Final R esult [facility] [address] [place] [phone] * CBC (03/19/2024 12:26 PM EST) White Blood Count 8.2 4.8 - 10.8 X10*3/uL [facility] Red Blood Count 4.93 4.20 - 5.50 X10*6/uL [facility] Hemoglobin 14.4 12.0 - 16.0 g/dl [facility] Hematocrit 43.6 37.0 - 47.0 % [facility] Mean Corpuscular Volume 88.4 80.0 - 98.0 fL [facility] Mean Corpuscular Hemoglobin 29.2 27.0 - 33.0 pg [facility] Mean Corpuscular HGB Conc 33.0 31.0 - 35.0 g/dl [facility] Red Cell Distribution Width 11.9 11.0 - 16.0 % [facility] Platelet Count 314 160 - 400 X10*3/uL [facility] Mean Platelet Volume 10.4 9.4 - 12.3 fL [facility] NRBC Pct Auto 0.0 0.0 - 0.2 /100WBC [facility] NRBC Abs Auto 0.000 0.0 - 0.012 X10*3/uL [facility] Blood Venous blood specimen / Unknown 03/19/2024 12:26 PM EST 03/19/2024 1:14 PM EST us Monica Pandey DO LAB BLOOD ORDERABLES Final R esult [facility] [address] [place] [phone] * TSH (03/19/2024 12:26 PM EST) Thyroid Stimulating Hormone 1.95 0.32 - 4.0 uIU/mL [facility] Comment:TSH 3rd Generation ( [facility]) Blood Venous blood specimen / Unknown 03/19/2024 12:26 PM EST 03/19/2024 1:14 PM EST Result [facility] Monica Pandey LAB BLOOD ORDERABLES Final R esult Performing Organization Address City/[facility]/ZIP Co de Phone Number [facility] [address] [place] [address] [phone] * T4, Free (03/19/2024 12:26 PM EST) Free T4 (Free Thyroxine) 0.97 0.71 - 1.85 ng/dL [facility] Blood Venous blood specimen / Unknown 03/19/2024 12:26 PM EST 03/19/2024 1:14 PM EST Result [facility] Monica Pandey LAB BLOOD ORDERABLES Final R esult Performing Organization Address [facility] Co de Phone Number [facility] [address] [place] [address] [phone] * Hemoglobin A1c (03/19/2024 12:26 PM EST) Hemoglobin A1c 4.9 <6.0 % [facility] Comment:Hemoglobin A1C Refer ence Range Adults: 4.8 - 6.0 % Non diabetic: < 6.0 % Goal: < 7.0 %Additional Action Suggested: > 8.0 %Note: Hemoglobin A1c results are invalid for patients with abnormal amounts of HbF. Blood transfusions may impact the HbA1c concentration in the patient sample. Estimated Average Glucose 94 mg/dL [facility] Comment:eAG = Estimated ave rage glucose which is %A1C expressed asaverage glucose, using the formula of the T5M-ZagybjkKzajrvu Glucose study (ADAG), Diabetes Care, Vol.31,#8,Sep. 2007 Blood Venous blood specimen / Unknown 03/19/2024 12:26 PM EST 03/19/2024 1:14 PM EST Result [facility] Monica Pandey DO LAB BLOOD ORDERABLES Final R esult Performing Organization Address City/[facility]/ZIP Co de Phone Number [facility] [address] [place] [address] [phone] * (ABNORMAL) Hepatic Function Panel (03/19/2024 12:26 PM EST) Bilirubin, Total 0.3 0.0 - 1.0 mg/dL [facility] Bilirubin, Direct 0.1 0.0 - 0.5 mg/dL [facility] Aspartate Amino Transferase 24 5 - 31 U/L [facility] Alanine Aminotransferase 17 0 - 31 U/L [facility] Total Protein 9.0(H) 6.5 - 8.0 g/dL [facility] Albumin Level 5.1(H) 3.5 - 5.0 g/dL [facility] Alkaline Phosphatase 70 39 - 117 U/L [facility] Blood Venous blood specimen / Unknown 03/19/2024 12:26 PM EST 03/19/2024 1:14 PM EST Monica Pandey DO LAB BLOOD ORDERABLES Final R esult Performing Organization Address City/[facility]/ZIP Co de Phone Number [facility] [address] [place] [phone] * Lipid Panel, Standard (03/19/2024 12:26 PM EST) Triglycerides 96 <150 mg/dL [facility] Comment:Desirable Triglyceri de: less than 150 mg/dLBorderline High Triglyceride 150-199 mg/dLHigh Triglyceride: 200-499 mg/dLVery High Triglyceride: greater than or equal to 5OO mg/dL Cholesterol 172 <200 mg/dL [facility] Comment:Desirable Cholestero l: less than 200 mg/dLBorderline High Cholesterol: 200-239 mg/dLHigh Cholesterol: greater than 239 mg/dL LDL Cholesterol Calculated 95 <100 mg/dL [facility] Comment:Desirable LDL: less than 100 mg/dLNear Optimal/Above Optimal LDL: 110- 129 mg/dLBorderline High LDL: 130-159 mg/dLHigh LDL: 160-189 mg/dLVery High LDL: greater than or equal to 190 mg/dL HDL Cholesterol 58 >40 mg/dL [facility] Comment:Desirable HDL: great er than 40 mg/dL Note: This HDL assay may give artificially low results in patients with liver disease. Blood Venous blood specimen / Unknown 03/19/2024 12:26 PM EST 03/19/2024 1:14 PM EST Monica Pandey DO LAB BLOOD ORDERABLES Final R esult Performing Organization Address [facility] Co de Phone Number [facility] [address] [place] [address] [phone] * (ABNORMAL) Basic Metabolic Panel (03/19/2024 12:26 PM EST) Sodium 139 135 - 145 mmol/L [facility] Potassium 3.6 3.3 - 5.1 mmol/L [facility] Chloride 107 96 - 108 mmol/L [facility] Carbon Dioxide 26 22 - 29 mmol/L [facility] Anion Gap 10(L) 12 - 20 [facility] Urea Nitrogen (BUN) 13 9 - 16 mg/dL [facility] Creatinine, Serum 0.70 0.5 - 1.4 mg/dL [facility] Estimated Glomerular Filt Rate >60 [facility] Comment:Chronic Kidney Disea se: Estimated GFR < 60 mL/min/[id number] Kidney Disease: Estimated GFR < 15 mL/min/1.73m2 Glucose 80 60 - 115 mg/dL [facility] Calcium 9.9 8.4 - 10.2 mg/dL [facility] Blood Venous blood specimen / Unknown 03/19/2024 12:26 PM EST 03/19/2024 1:14 PM EST Monica Pandey DO LAB BLOOD ORDERABLES Final R esult Performing Organization Address City/[facility]/ZIP Co de Phone Number [facility] [address] [place] [phone] from Last 3 Months Insurance [facility] C3 * Guarantor: Ladonna Walter Account Type Relation to Patient Date of Phone Billing Address Personal/Family Self 2005 [address] [place] [address] [place] [address] [place] [address]
--- OUTSIDE RECORDS SUMMARY | 2024-03-23 19:48 | XMS_ITS | Encounter Summary ---
Author Organization [email or web address] Address [address] [place] [address] Care Team Providers Care Day Care Attendant Name Role Phone Unavailable Primary Care Provider [...]
--- OUTSIDE RECORDS SUMMARY | 2024-03-23 19:48 | XMS_ITS | Encounter Summary ---
Author Organization [employer] Address [address] [place] [address] Care Team Providers Care Sound Controller Name Role Phone Unavailable Primary Care Provider Unavailabl e Reason for Visit * Reason Comments Pre-visit Planning SDOH Screening posit debbie and Tobacco screening negative Encounter Details Date Type Department Care Team ([facility] st Contact Info) Description 03/07/2024 Patient Outreach [facility] [address] [place] [address] Monica Pandey DO [address] [place] [address] Pre-visit Planning (SDOH Screening positive and Tobacco [...]
== END 2024-03-23 19:48 | disposition left against medical advice (07) ==
PROVIDERS: Emergency Provider Emergency Medicine
DX: R50.9 Fever, unspecified (principal)
CPT/HCPCS: 99281

== ENCOUNTER 2024-08-14 17:50 | Outpatient (REF) | payer MEDICAID, SELFPAY ==
--- OUTSIDE RECORDS SUMMARY | 2024-08-14 17:52 | XMS_ITS | Clinical Summary ---
Author Organization [employer] Address [address] [facility] 7t [place] [address] Care Team Providers Care Director Smb Sales Name Role Phone Monica Pandey DO Primary Care Provider + [phone] Allergies No known active allergies Medications * This document contains information received from the source organization and may not represent a complete record from that organization. cholecalciferol (Vitamin D-3) 50 MCG (1999) capsule Take 1 capsule (50 mcg) by mouth Once per day. 90 capsule 3 03/22/2024 Active levonorgestrel- ethinyl estradiol (Nordette) 0.15-30 MG-MCG tablet Take 1 tablet by mouth Once per day. 28 tablet 2 2024 Active Active Problems Problem Noted Date Diagnosed Date History of non-suicidal self-harm 03/21/2024 Moderate episode of recurrent major depressive d isorder 03/20/2024 DAISY (generalized anxiety disorder) 03/20/2024 Encounters Date Type Department Care Team Description 2024 2:45 PM EDT Procedure Visit [facility] [address] [place] [phone] Abida Acevedo CNM Cervical cancer screening (Primary Dx); Encounter for initial prescription of contraceptive pills 2024 Travel 08/13/2024 Telephone [facility] [address] [place] [phone] Monica Pandey DO Chart Prep from Last 3 Months Immunizations Immunization Administration Dates Next Due Influenza, seasonal, injectable, [...] Not Answered Alcohol Use Standard Drinks/Week Comments Not Currently 0 (1 standard drink = 0.6 oz [...] Q2 Not on file 03/07/2024 Comments No Intention Date Recorded No desire to become (finding) 0 2024 Sex and Gender Information Value Date Recorded Sex Assigned at Female 12/07/2021 10:34 AM EDT Legal Sex Female 10:34 AM EDT Gender Identity Female 05/02/2023 1:57 PM EDT Sexual Orientation Straight 05/02/2023 1: 57 PM EDT Last Filed Vital Signs Vital Sign Reading Time Taken Comments Blood Pressure 110/60 2024 3:04 PM EDT Pulse 76 2024 3:04 PM EDT Temperature 37.2 C (98.9 F) 2024 3:04 PM EDT Respiratory Rate 20 2024 3:04 PM EDT Oxygen Saturation 99% 2024 3:04 PM EDT Inhaled Oxygen Concentration - - Weight 48.8 kg (107 lb 9.6 oz) 2024 3:04 P M EDT Height 157.5 cm (5' 2 ) 2024 3:04 PM EDT Body Mass Index 19.68 2024 3:04 PM EDT Plan of Treatment Health Maintenance Due Date Last Done Comments HPV Vaccines (1 - 3-dose series) 08/13/2018 Meningococcal B Vaccine (1 o f 2 - Standard) 2019 Hepatitis B Vaccines (1 of 3 - 19+ 3-dose series) 08/13/2022 COVID-19 Vaccine (1 - 2023-2 5 season) 2023 Pap Smear 08/13/2024 Depression Monitoring 09/16/2024 03/19/2024 , 03/19/2024 Influenza Vaccine (#1) 2024 03/19/2024 SDOH Screening 03/07/2025 03/07/2024 Alcohol/Substance Use Screening 03/19/2025 03/19/2024 Chlamydia and Gonorrhea Screening 03/19/2025 03/19/2024 Disability Screening 2025 2024 Family Planning (PISQ) 2025 2024 Tobacco Screening 2025 2024 DTaP/Tdap/Td Vaccines (2 - T d or Tdap) 03/19/2034 03/19/2024 Zoster Vaccines (1 of 2) 08/13/2053 RSV Patients and Patients Aged 60 years or older (1 - 1-dose 75+ series) 08/13/2078 HIV Screening Completed 03/19/2024 Hepatitis C Screening Completed 03/19/2024 HIB Vaccines Aged Out No [...] Years) and At-Risk Patients (6 to 49) Years Aged Out No longer eligible b ased on patient's age to complete this topic RSV under 20 months Aged Out No longe r eligible based on patient's age to complete this topic Rotavirus Vaccines Aged Out No longer eligible based on patient's age to complete this topic Procedures Procedure Name Priority Date/Time Associated Diagnosis Comments HEPATITIS C AB W/REFL TO HCV RNA, [...] examination of adult from Last 3 Months or Most Recently Relevant to Health Maintenance Results * Hepatitis C Antibody with Reflex to HCV, RNA, Quantitative, Real-Time PCR (03/19/2024 12:26 PM EST) Hepatitis C Antibody Nonreactive Nonreactive [facility] Comment:Antibodies to HCV no t detected; does not exclude early acuteHCV infection. Blood Venous blood specimen / Unknown 03/19/2024 12:26 PM EST 03/19/2024 1:14 PM EST us Monica Pandey DO LAB BLOOD ORDERABLES Final R esult [facility] [address] [place] [address] [phone] * Chlamydia/N. Gonorrhoeae RNA, TMA, Urogenitial (03/19/2024 12:26 PM EST) CT PCR NOT DETECTED Not Detect. [facility] Comment:A not detected test result [...] psychologicalconsequences. NG PCR NOT DETECTED Not Detect. [facility] Comment:A not detected test result [...] PM EST 03/19/2024 1:11 PM EST Narrative [facility] - 03/20/2024 5:33 AM EST Urine us Monica Pandey DO LAB MICROBIOLOGY - GENERAL O RDERABLES Final Result [facility] [address] [place] [phone] * HIV-1/2 Antigen and Antibodies, Fourth Generation, with Reflexes (03/19/2024 12:26 PM EST) HIV AB/AG Nonreactive Nonreactive [facility] Comment:HIV-1 p24 Ag and/or HIV-1/HIV-2 Ab not detected.A test result that is nonreactive does not exclude thepossibility of exposure to or infection with HIV-1 and/orHIV-2. Nonreactive results in this assay for individualswith prior exposure to HIV-1 and/or HIV-2 may be due toantigen and antibody levels that are below the limit ofdetection of this assay.[employer] HIV Ag/Ab Combo assay result andsupplemental assay results should be interpreted inconjunction with the patient's clinical presentation,history and other laboratory results. If the results areinconsistent with clinical evidence, additional testing issuggested to confirm the result. Blood Venous blood specimen / Unknown 03/19/2024 12:26 PM EST 03/19/2024 1:14 PM EST us Monica Pandey DO LAB BLOOD ORDERABLES Final R esult [facility] [address] [place] [phone] from Last 3 Months or Most Recently Relevant to Health Maintenance Insurance [address] [id number] [facility] [employer] [employer] [employer] Care Teams Director Smb Sales Relationship Specialty Start Date End Date Monica Pandey DO [address] [place] [phone] PCP - General Family Medicine 06/11/24
== END 2024-08-14 17:51 | disposition home or self-care (01) ==
LOC: HO.HHCLNP 17:50
PROVIDERS: Visit Provider Advanced Practice Midwife
DX: Z12.4 Encounter for screening for malignant neoplasm of cervix (principal)
CPT/HCPCS: 88175

== ENCOUNTER 2024-10-19 14:14 | Outpatient (REF) | payer MEDICAID, SELFPAY ==
--- OUTSIDE RECORDS SUMMARY | 2024-10-19 09:15 | XMS_ITS | Encounter Summary ---
Author Organization [employer] Address [address] [facility] 7 [place] [address] Care Team Providers Care Simulation Developer Name Role Phone Monica Panedy DO Primary Care Provider + [phone] Reason for Referral * Imaging (Routine) - Authorized Specialty Diagnoses / Procedures Referred By Contac t Referred To Contact Radiology Diagnoses Dyspareunia, female Procedures US Pelvis Transvaginal Monica Pandey DO [address] [place] [address] Phone: tel: fax: [address] Phone: tel: fax: Referral ID Status Reason Start Date Expiration Date V isits Requested Visits Authorized [id number] Authorized 10/19/2024 10/19/2025 1 1 * Imaging (Routine) - Authorized Specialty Diagnoses / Procedures Referred By Contac t Referred To Contact Radiology Diagnoses Dyspareunia, female Procedures Us Pelvis complete Monica Pandey DO [address] [place] [address] Phone: tel: fax: [address] Phone: tel: fax: Referral ID Status Reason Start Date Expiration Date V isits Requested Visits Authorized [id number] Authorized 10/19/2024 10/19/2025 1 1 Reason for Visit * Reason Comments Follow-up F/u Labs / depressio n Encounter Details Date Type Department Care Team (Late st Contact Info) Description 10/19/2024 9:15 AM EDT Office Visit [facility] [address] [place] [address] Monica Pandey DO [address] [place] [address] Major depression, recurrent, chronic (CMS/HCC) (Primary Dx); DAISY (generalized anxiety disorder); Dyspareunia, female; Vaginal discharge; Healthcare maintenance; Encounter for immunization; Body mass index (BMI) of 19.0 to 19.9 in adult Social History Tobacco Use Types Packs/Day Years Used Date Smoking Tobacco: Never Smokeless Tobacco: Never Alcohol Use Standard Drinks/Week Comments Not Currently 0 (1 standard drink = 0.6 oz pur e alcohol) Depression Answer Date Recorded Patient Health Questionnaire-9 Score 4 10/19/2024 Patient Health Questionnaire-9 Score 4 10/19/2024 Last PHQ-9: Questionnaire Data Not on file 0 10/19/2024 Housing Stability Answer Date Recorded What is [...] Answer Date Recorded Patient Health Questionnaire-2 Score 2 10/19/2024 Internet Access Answer Date Recorded Internet Access [...] Sign Reading Time Taken Comments Blood Pressure 110/64 10/19/2024 9:17 AM EDT Pulse 84 10/19/2024 9:17 AM EDT Temperature 36.7 C (98.1 F) 10/19/2024 9:17 AM EDT Respiratory Rate 20 10/19/2024 9:17 AM EDT Oxygen Saturation - - Inhaled Oxygen Concentration - - Weight 50.5 kg (111 lb 5 oz) 10/19/2024 9:17 AM EDT Height 161.3 cm (5' 3.5 ) 10/19/2024 9:17 AM EDT Body Mass Index 19.41 10/19/2024 9:17 AM EDT documented in this encounter Functional Status * Over the past 2 weeks, how often have you been bothered by any of the following problems? Question Answer Date of Assessment Author Patient Health Questionnaire-2 Score 2 10/19/2024 9:18 AM EDT Gloria Munson MA * Little interest or pleasure in doing things Answer Date of Assessment Author Several days 10/19/2024 9:18 AM EDT Gloria Munson MA * Feeling down, depressed, or hopeless Answer Date of Assessment Author Several days 10/19/2024 9:18 AM EDT Gloria Munson MA * Trouble falling or staying asleep, or sleeping too much Answer Date of Assessment Author Not at all 10/19/2024 9:18 AM EDT Gloria Munson MA * Feeling tired or having little energy Answer Date of Assessment Author Several days 10/19/2024 9:18 AM EDT Gloria Munson MA * Poor appetite or overeating Answer Date of Assessment Author Not at all 10/19/2024 9:18 AM EDT Gloria Munson MA * Feeling bad about yourself - or that you are a failure or have let yourself or your family down Answer Date of Assessment Author Several days 10/19/2024 9:18 AM EDT Gloria Munson MA * Trouble concentrating on things, such as reading the newspaper or watching television Answer Date of Assessment Author Not at all 10/19/2024 9:18 AM EDT Gloria Munson MA * Moving or speaking so slowly that other people could have noticed? Or the opposite - being so fidgety or restless that you have been moving around a lot more than usual. Answer Date of Assessment Author Not at all 10/19/2024 9:18 AM GINAT Gloria Munson MA * Thoughts that you would be better off or hurting yourself in some way Answer Date of Assessment Author Not at all 10/19/2024 9:18 AM GINAT Gloria Munson MA * Patient Health Questionnaire-9 Score Answer Date of Assessment Author 4 10/19/2024 9:18 AM GINAT Gloria Munson MA * How difficult have these problems made it for you to do your work, take care of things at home, or get along with other people? Answer Date of Assessment Author Somewhat difficult 10/19/2024 9:18 AM EDT Gloria Sotelo MA * Over the last 2 weeks, how often have you been bothered by any of the following problems? Question Answer Date of Assessment Author Feeling nervous, anxious, or on edge 1 10/19/2024 9:18 AM EDT Gloria Munson MA Not being able to stop or control worrying 0 10/19/2024 9:18 AM GINAT Gloria Munson MA Worrying too much about different things 3 10/19/2024 9:18 AM EDT Gloria Munson MA Trouble relaxing 0 10/19/2024 9:18 AM EDT Gloria Luque MA Being so restless that it is hard to sit still 0 10/19/2024 9:18 AM EDT Gloria Munson MA Becoming easily annoyed or irritable 1 10/19/2024 9:18 AM EDT Gloria Munson MA Feeling afraid as if something awful might happen 1 10/19/2024 9:18 AM EDT Gloria Munson MA DAISY-7 Total Score 6 10/19/2024 9:18 AM EDT Gloria Munson MA documented as of this encounter Plan of Treatment Upcoming Encounters Date Type Department Care Team (Late st Contact Info) Description 10/22/2024 3:00 PM EDT Immunization [facility] [address] [place] [address] Scheduled Orders Name Type Priority Associated Diagnoses Orde r Schedule Us Pelvis complete Imaging Routine Dyspareunia, female Expected: 10/19/2024, Expires: 10/19/2025 US Pelvis Transvaginal Imaging Routine Dyspareunia, female Expected: 10/19/2024, Expires: 10/19/2025 documented as of this encounter Procedures Procedure Name Priority Date/Time Associated Diagnosis Comments CHLAMYDIA/N. GONORRHOEAE RNA, TMA, UROGENITAL Routine 10/19/2024 11:03 AM EDT Vaginal discharge BACTERIAL VAGINOSIS PANEL Routine 10/19/2024 11:00 AM EDT Vaginal discharge documented in this encounter Results * Chlamydia/N. Gonorrhoeae RNA, TMA, Vaginal (10/19/2024 11:03 AM EDT) CT PCR NOT DETECTED Not Detect. [facility] Comment:A not detected test result does [...] psychologicalconsequences. NG PCR NOT DETECTED Not Detect. [facility] Comment:A not detected test result does [...] lead to adverse medical, social or psychologicalconsequences. Swab (Vaginal Swab) 10/19/2024 11:03 AM EDT 10/19/2024 2:15 PM EDT us Monica Pandey DO LAB MICROBIOLOGY - GENERAL O RDERABLES Final Result [facility] [address] [place] [phone] * (ABNORMAL) Bacterial Vaginosis Panel (10/19/2024 11:00 AM EDT) TRICHOMONAS VAGINALIS DETECTION BY PCR NOT DETECTED Not Detect [facility] BACTERIAL VAGINOSIS DETECTION BY PCR NEGATIVE Negative [facility] Comment:The BV organism targ ets of the Xpert Xpress MVP test can becommensal in women; Xpert Xpress MVP positive results forbacterial vaginosis should be considered in conjunction withother clinical and patient information to determine thedisease status. Organisms that are not detected by the XpertXpress MVP test have also been reported to be associatedwith BV and aerobic vaginitis.The Xpert Xpress MVP test performance has not been evaluatedin patients under the age of 14. [employer] DETECTION BY PCR NOT DETECTED Not Detect [facility] Torrie glab krusei PCR DETECTED(A) Not Detect [facility] Swab Vaginal structure / Unknown 10/19/2024 11:00 AM EDT 10/19/2024 2:15 PM EDT us Monica Pandey DO LAB MICROBIOLOGY - GENERAL O RDERABLES Final Result [facility] [address] [place] [phone] documented in this encounter Visit Diagnoses Diagnosis Major depression, recurrent, chronic (CMS/HCC)- Primary DAISY (generalized anxiety disorder) Generalized anxiety disorder Dyspareunia, female Vaginal discharge Leukorrhea, not specified as infective Healthcare maintenance Encounter for immunization Body mass index (BMI) of 19.0 to 19.9 in adult documented in this encounter Additional Health Concerns Assessment Noted Time PHQ-9 Depression Total Score: 4 10/20/19 9:18 AM EDT documented as of this encounter Care Teams Simulation Developer Relationship Specialty Start Date End Date Monica Pandey DO [address] [place] [phone] PCP - General Family Medicine 06/11/24 documented as of this encounter
[2024-10-19 15:41] LABS: Bacterial Vaginosis PCR NEGATIVE (Negative); Candida Group PCR NOT DETECTED (Not Detect); Candida glab krusei PCR DETECTED (Not Detect); Trichomonas vaginalis PCR NOT DETECTED (Not Detect)
[2024-10-19 16:10] LABS: CT PCR NOT DETECTED (Not Detect.); NG PCR NOT DETECTED (Not Detect.)
--- OUTSIDE RECORDS SUMMARY | 2024-10-19 17:10 | XMS_ITS | Encounter Summary ---
Author Organization [employer] Address 75 [facility] 7t [place] [address] Care Team Providers Care Community Outreach Manager Name Role Phone Monica Pandey DO Primary Care Provider + [phone] Reason for Visit * Reason Onset Date Comments Chart Prep 10/15/2024 Encounter Details Date Type Department Care Team ([facility] st Contact Info) Description 10/15/2024 Telephone [facility] [address] [place], [place] [phone] Monica Pandey DO [address] [place], [place] [phone] Chart Prep Social History Tobacco Use Types Packs/Day Years [...] encounter Miscellaneous Notes * Telephone Encounter - Kenya Guido MA - 10/15/2024 2:39 PM EDT Chart Prep Labs: done Images: not applicable Referrals: not applicable Vaccines due: Covid, Flu, Hep B, and MCV4 Screenings: LMP Overdue care gaps: PHQ-9 and DAISY-7 documented in this encounter Plan of Treatment Upcoming Encounters Date Type Department Care Team (Late st Contact Info) Description 10/22/2024 3:00 PM EDT Immunization [facility] [address] [place] [address] documented as of this encounter Visit Diagnoses Not on filedocumented in this encounter Additional Health Concerns Assessment Noted Time PHQ-9 Depression Total Score: 14 025 10:56 AM EST documented as of this encounter Care Teams Community Outreach Manager Relationship Specialty Start Date End Date Monica Pandey DO [address] [place] [address] PCP - General Family Medicine 06/11/24 documented as of this encounter
--- OUTSIDE RECORDS SUMMARY | 2024-10-19 17:10 | XMS_ITS | Clinical Summary ---
Author Organization [employer] Address [address] [facility] 7t [place] [address] Care Team Providers Care Psychiatry Physician Name Role Phone Monica Pandey DO Primary Care Provider [phone] Allergies No known active allergies Medications * This document contains information received from the source organization and may not represent a complete record from that organization. cholecalciferol (Vitamin D-3) 50 MCG (1999 UT) capsule Take 1 capsule (50 mcg) by mouth Once per day. 90 capsule 3 03/22/2024 03/22/19 26 Active levonorgestrel-e thinyl estradiol (Nordette) 0.15-30 MG-MCG tablet Take 1 tablet by mouth Once per day. 28 tablet 2 2024 08/15/19 26 Active emtricitabine-te nofovir DF (Truvada) 200-300 MG tabletIndication s:On pre-exposure prophylaxis for HIV Take 1 tablet by mouth Once per day. 30 tablet 2 09/26/2024 09/27/19 26 Active doxycycline (Vibra-Tabs) 100 MG tablet Take 1 tablet (100 mg) by mouth 2 times daily. Take with a full glass of water and do not lie down for at least 30 minutes after. 60 tablet 09/26/2024 10/27/19 25 Active HPV 9-valent (Gardasil-9) suspension prefilled syringe vaccine prefilled syringe Inject 0.5 mL into the muscle 1 (one) time for 1 dose. 0.5 mL 2 10/19/2024 10/20/19 25 Active Active Problems Problem Noted Date Diagnosed Date Body mass index (BMI) of 19.0 to 19.9 in adult 0 10/19/2024 History of non-suicidal self-harm 03/21/2024 Major depression, recurrent, chronic 03/20/2024 Generalized anxiety disorder 03/20/2024 Encounters Date Type Department Care Team Description 10/19/2024 9:15 AM EDT Office Visit [facility] [place] [address] Monica Pandey DO Major depression, recurrent, chronic (CMS/HCC) (Primary Dx); DAISY (generalized anxiety disorder); Dyspareunia, female; Vaginal discharge; Healthcare maintenance; Encounter for immunization; Body mass index (BMI) of 19.0 to 19.9 in adult 10/19/2024 Travel 10/15/2024 Telephone [facility] [place] [address] Monica Pandey DO Chart Prep 10/10/2024 Patient Outreach [facility] [place] [address] Monica Pandey DO Pre-visit Planning (SDOH screening completed on 03/07/2024) 09/25/2024 Telephone [facility] [place] [address] Monica Pandey DO Recall Letter (Recall Letter sent 09/25/24.) 09/24/2024 Orders Only [facility] [place] [address] Gricelda White, RN On pre-exposure prophylaxis for HIV (Primary Dx) 09/21/2024 Orders Only [facility] [place] [address] Gricelda White, RN On pre-exposure prophylaxis for HIV (Primary Dx) 08/21/2024 Results Follow-Up [facility] [address] Vin Tafoya CNM Pap Smear 08/16/2024 Telephone [facility] [place] [address] Vin Tafoya CNM 2024 2:45 PM EDT Procedure Visit [facility] [place] [address] Vin Tafoya CNM Cervical cancer screening (Primary Dx); Encounter for initial prescription of contraceptive pills 2024 Travel 08/13/2024 Telephone [facility] [address] [place], [place] [phone] Monica Pandey DO Chart Prep from Last 3 Months Immunizations Immunization Administration Dates Next Due HepB-CpG 10/19/2024 Influenza, seasonal, injectable, preservative fr ee 03/19/2024 [...] 20 10/19/2024 9:17 AM EDT Oxygen Saturation 99% 2024 3:04 PM EDT Inhaled Oxygen Concentration - - Weight 50.5 kg (111 lb 5 oz) 10/19/2024 9:17 AM EDT Height 161.3 cm (5' 3.5 ) 10/19/2024 9:17 AM EDT Body Mass Index 19.41 10/19/2024 9:17 AM EDT Plan of Treatment Upcoming Encounters Date Type Department Care Team (Late st Contact Info) Description 10/22/2024 3:00 PM EDT Immunization [facility] [address] [place] [phone] Health Maintenance Due Date Last Done Comments HPV Vaccines (1 - 3-dose series) 08/13/2018 Meningococcal B Vaccine (1 of 2 - Standard) 2019 COVID-19 Vaccine (1 - season) 2024 Influenza Vaccine (#1) 2024 03/19/2024 Hepatitis B Vaccines (2 of 2 - CpG 2-dose series) 11/16/2024 10/19/2024 SDOH Screening 03/07/2025 03/07/2024 Alcohol/Substance Use Screening 03/19/2025 03/19/2024 Disability Screening 2025 2024 Family Planning (PISQ) 2025 2024 Pap Smear 2025 2024 Tobacco Screening 2025 2024 Chlamydia and Gonorrhea Screening 10/19/2025 10/19/2024, 09/18/2024, 09/18/2024, Additional history exists Depression Screening 10/19/2025 10/19/2024, 10/20/19 25 DTaP/Tdap/Td Vaccines (2 - Td or Tdap) 03/19/2034 03/19/2024 Zoster Vaccines (1 of 2) 08/13/2053 RSV Patients and Patients Aged 60 years or older (1 - 1-dose 75+ series) 08/13/2078 HIV Screening Completed 09/18/2024, 03/19/2024 Hepatitis C Screening Completed 09/18/2024, 025 HIB Vaccines Aged Out No longer eligi [...] 49) Years Aged Out No longer eligible based on [...] Routine 10/19/2024 11:00 AM EDT Vaginal discharge HIV ANTIBODY/ANTIGEN ([place] DPH) Routine 09/18/2024 SYPHILIS ABS ([place] DPH) Routine 09/18/2024 HEPATITIS C ANTIBODY ([place] DPH) Routine 09/18/2024 CHLAMYDIA/GONORRHEA VAGINAL SWAB ([place] DPH) Routine 09/18/2024 CHLAMYDIA/GONORRHEA THROAT SWAB ([place] DPH) Routine 09/18/2024 PAP SMEAR Routine 2024 3:15 PM EDT Cervical cancer screening from Last 3 Months Results * Chlamydia/N. Gonorrhoeae RNA, TMA, Vaginal (10/19/2024 11:03 AM EDT) CT PCR NOT DETECTED Not Detect. [facility] Comment:A not detected test result [...] psychologicalconsequences. NG PCR NOT DETECTED Not Detect. [facility] Comment:A not detected test result [...] 11:03 AM EDT 10/19/2024 2:15 PM EDT Monica Dannie CANALES LAB MICROBIOLOGY - GENERAL O RDERABLES Final Result Performing Organization Address [facility] Co de Phone Number [facility] [address] [place] [phone] * (ABNORMAL) Bacterial Vaginosis Panel (10/19/2024 11:00 AM EDT) TRICHOMONAS VAGINALIS DETECTION BY PCR NOT DETECTED Not Detect [facility] BACTERIAL VAGINOSIS DETECTION BY PCR NEGATIVE Negative [facility] Comment:The BV organism targ ets of [...] DETECTION BY PCR NOT DETECTED Not Detect [facility] Torrie glab krusei PCR DETECTED(A) Not Detect [facility] Swab Vaginal structure / Unknown 10/19/2024 11:00 AM EDT 10/19/2024 2:15 PM EDT Monica Pandey DO LAB MICROBIOLOGY - GENERAL O RDERABLES Final Result Performing Organization Address City/[facility]/ZIP Co de Phone Number [facility] [address] [place] [phone] * Chlamydia/Gonorrhea Vaginal Swab ([place] DPH) (09/18/2024) Chlamydia Vaginal Swab Negative Negative, Indeterminate, None Detected, Invalid, Specimen unsatisfactory for evaluation, Weakly Positive, 2+ Gonorrhea Vaginal Swab Negative Negative, Indeterminate, None Detected, Invalid, Specimen unsatisfactory for evaluation, Weakly Positive, 2+ Swab Vaginal structure / Unknown 09/18/2024 Result [facility] Provider MD LAB MICROBIOLOGY - GENERA L ORDERABLES Final Result * Chlamydia/Gonorrhea Throat Swab ([place] DP) (09/18/2024) Chlamydia Throat Swab Negative Gonorrhea Throat Swab Negative Swab 09/18/2024 Result [facility] Provider MD LAB MICROBIOLOGY - GENERA L ORDERABLES Final Result * Syphilis Antibodies (DPH) (09/18/2024) Syphilis Abs Nonreactive Borderline, Nonreactive, Weakly Reactive, Inconclusive, Specimen unsatisfactory for evaluation Blood Venous blood specimen / Unknown 09/18/2024 Result [facility] MD LAB BLOOD ORDERABLES Gena l Result * Hepatitis C Antibody ([place] DP) (09/18/2024) Pathologist [facility] Hepatitis C Ab Nonreactive Blood 09/18/2024 Result [facility] MD LAB BLOOD ORDERABLES Gena l Result * HIV Ab/Ag ([place] DP) (09/18/2024) Pathologist [facility] HIV Ag/Ab Nonreactive Blood 09/18/2024 Result [facility] MD LAB BLOOD ORDERABLES Edit ed Result - Final * Pap Smear (2024 3:15 PM EDT) Swab Cervix uteri structure / Unknown 2024 3:15 PM EDT 08/15/2024 8:30 AM EDT Narrative [facility] - 08/21/2024 2:36 PM EDT ----- ------- Name: Ladonna Walter Age/Sex: 19/F : 2005 Unit#: [id number] Attend Dr: VIN TAFOYA CNM Re08/14/24 Status: DEP [facility] ----- ------- SPEC : [id number] RECD: 08/15/24 STATUS: DULCE SACHIN NUM: [id number] CHRISTIANE: 08/14/24 [facility] DR: VIN TAFOYA CNM ENTERED: 08/15/24 SP TYPE: Pap Smr OTHR DR: ORDERED: Pap Smear, PAP path review Interpretation General Category: Epithelial cell abnormality. Adequacy: Endocervical component present. Interpretation: Atypical squamous cells of undetermined significance. Clinical Information LMP: Unknown date Previous PAP test: First pap Other history: Cervical cancer screening Material Received ThinPrep-Cervical PAP Disclaimer As of November 30, 2023, the technical services to include automated prescreening performed by the ThinPrep Imaging System, PAP screening and HPV testing will be performed at [facility] (CLIA #[id number]), [address] [place] [address]. Testing for HPV was performed using the [employer] system. The presence of HPV in the female genital tract is associated with a number of diseases, including cervical carcinoma. The HPV DNA high risk pool tests for HPV 31, 33, 35, 39, 45, 51, 52, 56, 58, 59, 66 and 68. The testing for HPV 16 and 18 genotypes has also been performed. A positive result indicates detection of nucleic acid sequences from one or more subtypes, whereas a negative result indicates such sequences were not detected. All professional services are performed by [facility] ([address] [place] [address], [place] [address]; ; CLIA #[id number]). The PAP Test is a screening procedure with the inherent possibility of both false negative and false positive results. Results should be interpreted in the context of historic and current clinical findings. Reliability of the PAP Test is enhanced by performing the test on a regular repetitive basis. ----- ------- Signed (signature on file) Russell Ruggiero MD 08/21/24 1436 ----- ------- END OF REPORT us Vin Tafoya [facility] LAB CYTOLOGY ORDERABLES F inal Result [facility] [address] [place] [address] [phone] from Last 3 Months Insurance * Guarantor: Ladonna Walter Account Type Relation to Patient Date of Phone Billing Address Personal/Family Self [address] [place] [address] [facility] C3 Care Teams Psychiatry Physician Relationship Specialty Start Date End Date Monica Pandey DO [address] [place] [phone] PCP - General Family Medicine 06/11/24
--- OUTSIDE RECORDS SUMMARY | 2024-10-19 17:10 | XMS_ITS | Encounter Summary ---
Author Organization [employer] Address [address] [facility] [address] 7[address] [place] [address] Care Team Providers Care Oracle Software Engineer Name Role Phone BertoMonica bolton Primary Care Provider + [phone] Encounter Details Date Type Department Care Team (Latest Contact Info) Description 10/19/2024 Travel Social History Tobacco Use Types Packs/Day [...] PM EDT documented as of this encounter Functional Status * Over the [...] Assessment Author Several days 10/19/2024 9:18 AM GINAT Gloria Munson MA * Trouble concentrating on [...] 9:18 AM EDT Gloria Munson MA * Thoughts that you would be better off or hurting yourself in some way Answer Date of Assessment Author Not at all 10/19/2024 9:18 AM EDT Gloria Munson MA * Patient Health Questionnaire-9 Score Answer Date of Assessment Author 4 10/19/2024 9:18 AM EDT Gloria Munson MA * How difficult have [...] or control worrying 0 10/19/2024 9:18 AM EDT Gloria Munson MA Worrying too much about [...] Info) Description 10/22/2024 3:00 PM EDT Immunization [facility] [address] [place] [address] documented as of this encounter Visit Diagnoses Not on filedocumented in this encounter Additional Health Concerns Assessment Noted Time PHQ-9 Depression Total Score: 4 10/20/19 25 9:18 AM EDT documented as of this encounter Care Teams Oracle Software Engineer Relationship Specialty Start Date End Date Monica Pandey DO [address] [place] [address] PCP - General Family Medicine 06/11/24 documented as of this encounter
== END 2024-10-19 14:15 | disposition home or self-care (01) ==
LOC: HO.LNP 14:14
PROVIDERS: Visit Provider Family Medicine
DX: Z11.3 Encounter for screening for infections with a predominantly sexual mode of transmission (principal); Z11.8 Encounter for screening for other infectious and parasitic diseases; N89.8 Other specified noninflammatory disorders of vagina
CPT/HCPCS: 81515; 87491; 87591

== ENCOUNTER 2024-12-27 15:56 | Outpatient (REF) | payer MEDICAID, SELFPAY ==
--- OUTSIDE RECORDS SUMMARY | 2024-12-27 09:15 | XMS_ITS | Encounter Summary ---
Author Organization [employer] Address [address] [facility] 7t [place] [address] Care Team Providers Care Court Administrator Name Role Phone Monica Pandey Primary Care Provider Encounter Details Date Type Department Care Team (Latest Contact Info) Description 12/27/2024 9:15 AM EST Office Visit [facility] [address] [place] [address] Abida Acevedo CN [address] [place], [place] [phone] Surveillance of previously prescribed contraceptive pill (Primary Dx); Screening examination for venereal disease; Dyspareunia, female Social History Tobacco Use Types Packs/Day Years Used Date Smoking Tobacco: Every Day Cigarettes Smokeless Tobacco: Current Tobacco Cessation:Ready to Q uit: Not Asked; Counseling Given: Not Answered Alcohol Use Standard Drinks/Week [...] Date Recorded No desire to become (finding) 1 02/27/2024 Sex and Gender Information Value Date Recorded Sex Assigned at Female 12/07/2021 10:34 AM EDT Legal Sex Female 10:34 AM EDT Gender Identity Female 05/02/2023 1:57 PM EDT Sexual Orientation Straight 05/02/2023 1: 57 PM EDT documented as of this encounter Last Filed Vital Signs Vital Sign Reading Time Taken Comments Blood Pressure 104/58 12/27/2024 9:22 AM EST Pulse 68 12/27/2024 9:22 AM EST Temperature 36.8 C (98.2 F) 12/27/2024 9:22 AM EST Respiratory Rate 12 12/27/2024 9:22 AM EST Oxygen Saturation - - Inhaled Oxygen Concentration - - Weight 51.4 kg (113 lb 6.4 oz) 12/27/2024 9:22 A M EST Height 160 cm (5' 3 ) 12/27/2024 9:22 AM EST Body Mass Index 20.09 12/27/2024 9:22 AM EST documented in this encounter Progress Notes * Abida Acevedo CNM - 12/27/2024 9:15 AM EST Subjective Patient ID: Ladonna Mcnally is a 19 y.o. female who presents for followup Started on oral contraceptive pill 08/2024. Happy with oral contraceptive pill. Denies ACHES, no missed/late pills. ASCUS pap 08/2024. HIV, syphilis, Hep C neg, Gonorrhea/Chlamydia neg 09/2024. Received two doses of Heplisav, due for 3rd HPV vaccine 03/2025. Rx'd DoxyPEP and Truvada. She decided against taking both of these. Reviewed indications, she declines both today. 1 new AMAB partner since last visit, vaginal sex. Would like STI testing today. Notes some vaginal discharge, no other vaginal symptoms. Notes some pain with sex which she attributes to partner's anatomy. Able to enjoy sex. Ultrasound previously ordered by PCP to evaluate, but it looks like she missed appointment. Would like provider collected swabs today. Review of Systems Eyes: Negative for visual disturbance. Respiratory: Negative for shortness of breath. Cardiovascular: Negative for chest pain and leg swelling. Genitourinary: Positive for dyspareunia and vaginal discharge. Negative for dysuria, menstrual problem, pelvic pain, vaginal bleeding and vaginal pain. Skin: Negative for color change. Neurological: Negative for headaches. Objective BP 104/58 (BP Location: Left arm, Patient Position: Sitting, BP Cuff Size: Adult) Pulse 68 Temp98.2 ??F (36.8 ??C) (Oral) Resp 12 Ht 5' 3 (1.6 m) Wt 113 lb 6.4 oz (51.4 kg) LMP 12/27/2024 (Exact Date) Comment: Pt is unsure of last period, thinks it was approximately end of last month BMI 20.09 kg/m?? Physical Exam Rehabilitation Services Manager present: declined director paid media. Constitutional: Appearance: Normal appearance. Genitourinary: General: Normal vulva. Labia: Right: No rash, tenderness, lesion or injury. Left: No rash, tenderness, lesion or injury. Vagina: No signs of injury and foreign body. No vaginal discharge, erythema, tenderness, bleeding, lesions or prolapsed vaginal alegria. Cervix: No cervical motion tenderness, discharge, friability, lesion, erythema, cervical bleeding or eversion. Comments: Menses noted Neurological: Mental Status: She is alert. Psychiatric: Mood and Affect: Mood normal. Behavior: Behavior normal. Assessment/Plan Diagnoses and all orders for this visit: Surveillance of previously prescribed contraceptive pill Happy with method, will continue for now. ACHES reviewed. Screening examination for venereal disease - Bacterial Vaginosis, Yeast and Trich; Future - Chlamydia/N. Gonorrhoeae RNA, TMA, Vagina - Syphilis Screen; Future - HIV-1/2 Antigen and Antibodies, Fourth Generation, with Reflexes; Future Vaginal and serum labs ordered. Will contact with results and plan. Wet mount deferred due to menses. Dyspareunia, female Discussed strategies to help. Increase foreplay, try positions that allow her to control depth of penetration. R/s pelvic ultrasound. Other orders - levonorgestrel-ethinyl estradiol (Altavera) 0.15-30 MG-MCG tablet; Take 1 tablet by mouth Once per day. documented in this encounter Plan of Treatment Upcoming Encounters Date Type Department Care Team (Late st Contact Info) Description 04/22/2025 1:00 PM EDT Immunization [facility] [address] [place] [address] Scheduled Orders Name Type Priority Associated Diagnoses Orde r Schedule Bacterial Vaginosis, Yeast and Trich Microbiology Routine Screening examination for venereal disease Expected: 12/27/2024 (Approximate), Expires: 12/27/2025 Syphilis Screen Lab Routine Screening examination for venereal disease Expected: 12/27/2024 (Approximate), Expires: 12/27/2025 HIV-1/2 Antigen and Antibodies, Fourth Generation, with Reflexes Lab Routine Screening examination for venereal disease Expected: 12/27/2024 (Approximate), Expires: 12/27/2025 documented as of this encounter Procedures Procedure Name Priority Date/Time Associated Diagnosis Comments CHLAMYDIA/N. GONORRHOEAE RNA, TMA, UROGENITAL Routine 12/27/2024 9:49 AM EST Screening examination for venereal disease documented in this encounter Results * Chlamydia/N. Gonorrhoeae RNA, TMA, Vagina (12/27/2024 9:49 AM EST) Pathologist [facility] CT PCR NOT DETECTED Not Detect. [facility] Comment:A not detected test result does [...] psychologicalconsequences. NG PCR NOT DETECTED Not Detect. [facility] Comment:A not detected test result does [...] to adverse medical, social or psychologicalconsequences. Swab Vaginal structure / Unknown 12/27/2024 9:49 AM EST 12/27/2024 3:57 PM EST Abida Acevedo CNM LAB MICROBIOLOGY - GENERA L ORDERABLES Final Result [facility] [address] [place] [address] [phone] documented in this encounter Visit Diagnoses Diagnosis Surveillance of previously prescribed contraceptive pill- Primary Screening examination for venereal disease Dyspareunia, female documented in this encounter Additional Health Concerns Assessment Noted Time PHQ-9 Depression Total Score: 4 10/20/19 25 9:18 AM EDT documented as of this encounter Care Teams Court Administrator Relationship Specialty Start Date End Date Monica Pandey DO [address] [place] [phone] PCP - General Family Medicine 06/11/24 documented as of this encounter
[2024-12-27 17:16] LABS: Bacterial Vaginosis PCR NEGATIVE (Negative); Candida Group PCR DETECTED (Not Detect); Candida glab krusei PCR NOT DETECTED (Not Detect); Trichomonas vaginalis PCR NOT DETECTED (Not Detect)
[2024-12-27 17:45] LABS: CT PCR NOT DETECTED (Not Detect.); NG PCR NOT DETECTED (Not Detect.)
--- OUTSIDE RECORDS SUMMARY | 2024-12-27 20:49 | XMS_ITS | Clinical Summary ---
Author Organization [employer] Address [address] [facility] 7t [place] [address] Care Team Providers Care Electronic Instrument Trades Worker Name Role Phone Monica Pandey Primary Care Provider Allergies No known active allergies Medications * This document contains information received from the source organization and may not represent a complete record from that organization. cholecalcifero l (Vitamin D-3) 50 MCG (1999 UT) capsule Take 1 capsule (50 mcg) by mouth Once per day. 90 capsule 3 03/22/19 25 026 Active Additional Information Patient not taking.Reported on 12/27/2024 emtricitabine- tenofovir DF (Truvada) 200-300 MG tabletIndicati ons:On pre-exposure prophylaxis for HIV Take 1 tablet by mouth Once per day. 30 tablet 2 09/27/19 25 026 Active doxycycline (Vibra-Tabs) 100 MG tablet TAKE 1 TABLET BY MOUTH 2 TIMES DAILY WITH A FULL GLASS OF WATER. DO NOT LIE DOWN FOR AT 30 MINUTES 60 tablet 10/25/19 25 Active Additional Information Patient not taking.Reported on 12/27/2024 levonorgestrel -ethinyl estradiol (Altavera) 0.15-30 MG-MCG tablet Take 1 tablet by mouth Once per day. 84 tablet 3 12/28/19 25 Active Altavera 0.15-30 MG-MCG tablet TAKE 1 TABLET BY MOUTH EVERY DAY 84 tablet 11/07/19 25 025 Discontinued(R eorder (will not trigger notification to Pharmacy)) Active Problems Problem Noted Date Diagnosed Date Body mass index (BMI) of 19.0 to 19.9 in adult 0 10/19/2024 History of non-suicidal self-harm 03/21/2024 Major depression, recurrent, chronic 03/20/2024 Generalized anxiety disorder 03/20/2024 Encounters Date Type Department Care Team Description 12/27/2024 9:15 AM EST Office Visit [facility] [place] [address] Abida Tafoya CNM Surveillance of previously prescribed contraceptive pill (Primary Dx); Screening examination for venereal disease; Dyspareunia, female 12/27/2024 Orders Only [facility] [place] [address] Abida Tafoya CNM 12/27/2024 Travel 12/26/2024 Telephone [facility] [place] [address] Abida Tafoya CNM chart prep 11/06/2024 Travel 11/05/2024 Refill [facility] [place] [address] Abida Tafoya CNM 10/23/2024 Refill [facility] [place] [address] Monica Pandey DO 10/23/2024 Refill [facility] [place] [address] Monica Pandey DO 10/19/2024 9:15 AM EDT Office Visit [facility] [place] [address] Monica Pandey DO Major depression, recurrent, chronic (CMS/HCC) (Primary Dx); DAISY (generalized anxiety disorder); Dyspareunia, female; Vaginal discharge; Healthcare maintenance; Encounter for immunization; Body mass index (BMI) of 19.0 to 19.9 in adult 10/19/2024 Travel 10/15/2024 Telephone [facility] [place] [address] Monica Pandey DO Chart Prep 10/10/2024 Patient Outreach [facility] [place] [address] Monica Pandey DO Pre-visit Planning (SDOH screening completed on 03/07/2024) from Last 3 Months Immunizations Immunization Administration Dates Next Due DTaP 10/26/2007, 6,09/18/2004,05/22,2003 HPV 9-Valent 11/26/2024,10/19/2024 HPV, Quadrivalent 05/18/2017,08/29/2014 Hep B, Adolescent or Pediatric 05/22/2004,2004,2003 HepB-CpG 11/26/2024,10/19/2024 IPV 10/26/2007, 5,03/24/2004,10/21 Influenza, IIV3, injectable 01/16/2018 Influenza, seasonal, injecta ble, preservative free 03/19/2024 MMR 10/26/2007,09/18/2004 Meningococcal ACWY, unspecified 08/29/2014 Pneumococcal Conjugate PCV 13 05/22/2004, 005,2003 Tdap 03/19/2024,09/01/2014 Varicella 10/26/2007,09/18/2004 Family History Medical History Relation Name Comments [...] 12 12/27/2024 9:22 AM EST Oxygen Saturation 99% 2024 3:04 PM EDT Inhaled Oxygen Concentration - - Weight 51.4 kg (113 lb 6.4 oz) 12/27/2024 9:22 A M EST Height 160 cm (5' 3 ) 12/27/2024 9:22 AM EST Body Mass Index 20.09 12/27/2024 9:22 AM EST Plan of Treatment Upcoming Encounters Date Type Department Care Team (Late st Contact Info) Description 04/22/2025 1:00 PM EDT Immunization [facility] [address] [place] [address] Health Maintenance Due Date Last Done Comments Pneumococcal Vaccine: Pediatrics (0 to 5 Years) and At-Risk Patients (6 to 49) Years (1 of 1 - PPSV23, PCV20, or PCV21) 08/13/2009 05/22/2004, 03/24/2004, 2003 Meningococcal B Vaccine (1 of 2 - Standard) 2019 COVID-19 Vaccine (1 - season) 2024 Influenza Vaccine (#1) 2024 03/19/2024, 2017 SDOH Screening 03/07/2025 03/07/2024 Alcohol/Substance Use Screening 03/19/2025 03/19/2024 Disability Screening 2025 2024 Pap Smear 2025 2024 Chlamydia and Gonorrhea Screening 10/19/2025 12/27/2024, 10/19/2024, 09/18/2024, Additional history exists Depression Screening 10/19/2025 10/19/2024, 10/20/19 25 Family Planning (PISQ) 12/27/2025 12/27/2024 Tobacco Screening 12/27/2025 12/27/2024 Lipid Panel 03/19/2029 03/19/2024 DTaP/Tdap/Td Vaccines (8 - Td or Tdap) 03/19/2034 03/19/2024, 09/01/2014, 10/26/2007, Additional history exists Zoster Vaccines (1 of 2) 08/13/2053 RSV Patients and Patients Aged 60 years or older (1 - 1-dose 75+ series) 08/13/2078 IPV Vaccines Completed 10/26/2007, 05/08, 03/24/2004, Additional history exists Meningococcal Vaccine Aged Out 08/29/2014 No stefan ruma eligible based on patient's age to complete this topic HIV Screening Completed 09/18/2024, 03/19/2024 Hepatitis C Screening Completed 09/18/2024, 025 HPV Vaccines Completed 11/26/2024, 10/08, 05/18/2017, Additional history exists Hepatitis B Vaccines Completed 11/26/2024, 10/19/2024, 05/22/2004, Additional history exists HIB Vaccines Aged Out No longer eligi [...] Procedure Name Priority Date/Time Associated Diagnosis Comments BACTERIAL VAGINOSIS PANEL Routine 12/27/2024 9:49 AM EST CHLAMYDIA/N. GONORRHOEAE RNA, TMA, UROGENITAL Routine 12/27/2024 9:49 AM EST Screening examination for venereal disease CHLAMYDIA/N. GONORRHOEAE RNA, TMA, UROGENITAL Routine 10/19/2024 11:03 AM EDT Vaginal discharge BACTERIAL VAGINOSIS PANEL Routine 10/19/2024 11:00 AM EDT Vaginal discharge HEPATITIS C ANTIBODY ([place] D[facility]) Routine 09/18/2024 HIV ANTIBODY/ANTIGEN ([place] DPH) Routine 09/18/2024 PAP SMEAR Routine 2024 3:15 PM EDT Cervical cancer screening LIPID PANEL, STANDARD Routine 03/19/2024 12:26 PM EST Encounter for immunization Routine history and physical examination of adult from Last 3 Months or Most Recently Relevant to Health Maintenance Results * (ABNORMAL) Bacterial Vaginosis (12/27/2024 9:49 AM EST) Only the most recent of2 resultswithin the time period is included. TRICHOMONAS VAGINALIS DETECTION BY PCR NOT DETECTED Not Detect [facility] BACTERIAL VAGINOSIS DETECTION BY PCR NEGATIVE Negative [facility] Comment:The BV organism targ ets [...] of 14. TORRIE GROUP DETECTION BY PCR DETECTED(A) Not Detect [facility] Torrie glab krusei PCR NOT DETECTED Not Detect [facility] 12/27/2024 9:49 AM EST 12/27/2024 3:57 PM EST Abida OTERO LAB MICROBIOLOGY - GENERA L ORDERABLES Final Result [facility] [address] [place] [address] [phone] * Chlamydia/N. Gonorrhoeae RNA, TMA, Vagina (12/27/2024 9:49 AM EST) Only the most recent of2 resultswithin the time period is included. CT PCR NOT DETECTED Not Detect. [facility] [...] AM EST 12/27/2024 3:57 PM EST Abida OTERO LAB MICROBIOLOGY - GENERA L ORDERABLES Final Result [facility] [address] [place] [phone] * Hepatitis C Antibody ([facility]) (09/18/2024) Hepatitis C Ab Nonreactive Blood 09/18/2024 [facility] Provider LAB BLOOD ORDERABLES Gena l Result * HIV Ab/Ag ([facility]) (09/18/2024) HIV Ag/Ab Nonreactive Blood 09/18/2024 [facility] Provider MD LAB BLOOD ORDERABLES Edit ed Result - Final * Pap Smear (2024 3:15 PM EDT) Swab Cervix uteri structure / Unknown 2024 3:15 PM EDT 08/15/2024 8:30 AM EDT Narrative [facility] - 08/21/2024 2:36 PM EDT ----- ------- Name: Ladonna Walter Age/Sex: 19/F : 2005 Unit#: [id number] Attend Dr: ABIDA TAFOYA CNM Re08/14/24 Status: [facility] REF Location: [facility] Disch: ----- ------- SPEC : [id number] RECD: 08/15/24 STATUS: DULCE STEPHENSON NUM: [id number] CHRISTIANE: 08/14/[address] [facility] [address]: ABIDA TAFOYA CNM ENTERED: 08/15/24 SP TYPE: Pap Smr OT DR: ORDERED: Pap Smear, PAP path review [...] and HPV testing will be performed at [facility] (IA #[id number]), [address] [place] [address]. Testing for HPV was performed using the Devora RILEY 6800 system. The presence of HPV in [...] detected. All professional services are performed by [facility] ([address] [place] [id number]; ; [place] #[id number]). The PAP Test is a screening procedure [...] 1436 ----- ------- END OF REPORT us Abida Tafoya [facility] LAB CYTOLOGY ORDERABLES F inal Result [facility] [address] [place] [phone] * Lipid Panel, Standard (03/19/2024 12:26 PM EST) Triglycerides 96 <150 mg/dL [facility] Comment:Desirable Triglyceri de: less than 150 mg/dLBorderline High Triglyceride 150-199 mg/dLHigh Triglyceride: 200-499 mg/dLVery High Triglyceride: greater than or equal to 5OO mg/dL Cholesterol 172 <200 mg/dL [facility] Comment:Desirable Cholestero l: less than 200 mg/dLBorderline High Cholesterol: 200-239 mg/dLHigh Cholesterol: greater than 239 mg/dL LDL Cholesterol Calculated 95 <100 mg/dL [facility] Comment:Desirable LDL: less than 100 mg/dLNear Optimal/Above Optimal LDL: 110- 129 mg/dLBorderline High LDL: 130-159 mg/dLHigh LDL: 160-189 mg/dLVery High LDL: greater than or equal to 190 mg/dL HDL Cholesterol 58 >40 mg/dL [facility] Comment:Desirable HDL: great er than 40 mg/dL Note: This HDL assay may give artificially low results in patients with liver disease. Blood Venous blood specimen / Unknown 03/19/2024 12:26 PM EST 03/19/2024 1:14 PM EST us Monica Pandey DO LAB BLOOD ORDERABLES Final R esult Performing Organization Address City/State/[facility] Co de Phone Number [facility] [address] [place] [phone] from Last 3 Months or Most Recently Relevant to Health Maintenance [place] [address] [place] [address] C3 Care Teams Electronic Instrument Trades Worker Relationship Specialty Start Date End Date Monica Pandey DO [address] [place] [phone] PCP - General Family Medicine 06/11/24
--- OUTSIDE RECORDS SUMMARY | 2024-12-27 20:50 | XMS_ITS | Encounter Summary ---
Author Organization [employer] Address [address] [facility] 7t [place] [address] Care Team Providers Care Maintenance Machine Repairer Name Role Phone Monica Pandey DO Primary Care Provider Encounter Details Date Type Department Care Team (Latest Contact Info) Description 12/27/2024 Travel Social History Tobacco Use Types Packs/Day Years Used Date Smoking Tobacco: Every Day Cigarettes Smokeless Tobacco: Current Alcohol Use Standard Drinks/Week Comments Not Currently [...] Info) Description 04/22/2025 1:00 PM EDT Immunization [facility] [address] [place] [address] documented as of this encounter Visit Diagnoses Not on filedocumented in this encounter Additional Health Concerns Assessment Noted Time PHQ-9 Depression Total Score: 4 10/20/19 25 9:18 AM EDT documented as of this encounter Care Teams Maintenance Machine Repairer Relationship Specialty Start Date End Date Monica Pandey DO [address] [place] [address] PCP - General Family Medicine 06/11/24 documented as of this encounter
--- OUTSIDE RECORDS SUMMARY | 2024-12-27 20:50 | XMS_ITS | Encounter Summary ---
Author Organization [employer] Address [address] [facility] 7t [place] [address] Care Team Providers Care Supervisor Firearms Name Role Phone Monica Pandey Primary Care Provider [phone] Encounter Details Date Type Department Care Team (Late st Contact Info) Description 12/27/2024 Orders Only [facility] [address] [place] [address] Abida Acevedo, [place] [address] [place] [address] Social History Tobacco Use Types Packs/Day Years [...] t he electric, gas, oil or water [place] threatened to shut off services in your [...] Info) Description 04/22/2025 1:00 PM EDT Immunization [facility] [address] [place] [address] documented as of this encounter Procedures Procedure Name Priority Date/Time Associated Diagnosis Comments BACTERIAL VAGINOSIS PANEL Routine 12/27/2024 9:49 AM EST documented in this encounter Results * (ABNORMAL) Bacterial Vaginosis (12/27/2024 9:49 AM EST) TRICHOMONAS VAGINALIS DETECTION BY PCR NOT DETECTED Not Detect [facility] BACTERIAL VAGINOSIS DETECTION BY PCR NEGATIVE Negative [facility] Comment:The BV organism targ ets [...] GROUP DETECTION BY PCR DETECTED(A) Not Detect [facility] Torrie glab krusei PCR NOT DETECTED Not Detect [facility] 12/27/2024 9:49 AM EST 12/27/2024 3:57 PM EST us Abida Acevedo CNM LAB MICROBIOLOGY - GENERA L ORDERABLES Final Result [facility] [address] [place] [phone] documented in this encounter Visit Diagnoses Not on filedocumented in this encounter Additional Health Concerns Assessment Noted Time PHQ-9 Depression Total Score: 4 10/20/19 25 9:18 AM EDT documented as of this encounter Care Teams Supervisor Firearms Relationship Specialty Start Date End Date Monica Pandey DO [address] [place] [address] PCP - General Family Medicine 06/11/24 documented as of this encounter
--- OUTSIDE RECORDS SUMMARY | 2024-12-27 20:50 | XMS_ITS | Encounter Summary ---
Author Organization [employer] Address [address] [facility] 7t [place] [address] Care Team Providers Care Theater Manager Name Role Phone BertoMonica bolton Primary Care Provider [phone] Reason for Visit * Reason Onset Date Comments chart prep 12/26/2024 Encounter Details Date Type Department Care Team ([facility] st Contact Info) Description 12/26/2024 Telephone [facility] [address] [place] [address] Abida Acevedo CNM [address] [place] [address] chart prep Social History Tobacco Use Types Packs/Day Years [...] your housing situation today? I have neelam holils 03/07/[address] you li [...] encounter Miscellaneous Notes * Telephone Encounter - Heidi Gonzalez MA - 12/26/2024 10:51 AM EST Chart Prep Labs: not applicable Images: not applicable Referrals: not applicable Vaccines due: Covid and Flu Screenings: not applicable Overdue care gaps: Not applicable documented in this encounter Plan of Treatment Upcoming Encounters Date Type Department Care Team (Late st Contact Info) Description 04/22/2025 1:00 PM EDT Immunization [facility] [address] [place] [address] documented as of this encounter Visit Diagnoses Not on filedocumented in this encounter Additional Health Concerns Assessment Noted Time PHQ-9 Depression Total Score: 4 10/20/19 25 9:18 AM EDT documented as of this encounter Care Teams Theater Manager Relationship Specialty Start Date End Date Monica Pandey DO [address] [place] [address] PCP - General Family Medicine 06/11/24 documented as of this encounter
== END 2024-12-27 15:57 | disposition home or self-care (01) ==
LOC: HO.HHCLNP 15:56
PROVIDERS: Visit Provider Advanced Practice Midwife
DX: Z20.2 Contact with and (suspected) exposure to infections with a predominantly sexual mode of transmission (principal)
CPT/HCPCS: 81515; 87491; 87591